=== PATIENT | male | born 1960 | race African-American/Black ===

== ENCOUNTER 2018-10-23 07:12 | Day surgery (SDC) | payer MEDICARE, MEDICAID ==
[2018-10-19 12:11] LABS: BASOPHILS % (AUTO) 0.9 % (0-1); EOSINOPHILS # (AUTO) 0.1 X10'3 (0-0.9); EOSINOPHILS % (AUTO) 1.5 % (0-6); LYMPHOCYTES # (AUTO) 1.7 X10'3 (1.1-4.8); LYMPHOCYTES % (AUTO) 39.5 % (21-51); MEAN CORPUSCULAR HEMOGLOBIN 32.3 PG (27.0-31.0); MEAN CORPUSCULAR HGB CONC 34.3 g/dL (33.0-36.5); MEAN CORPUSCULAR VOLUME 94.2 FL (78-98); MEAN PLATELET VOLUME 8.9 FL (7.4-10.4); MONOCYTES # (AUTO) 0.4 X10'3 (0-0.9); MONOCYTES % (AUTO) 8.5 % (2-12); NEUTROPHILS # (AUTO) 2.1 X10'3 (1.8-7.7); NEUTROPHILS % (AUTO) 49.6 % (42-75); PRE OP HEMATOCRIT 41.7 % (42.0-52.0); PRE OP HEMOGLOBIN 14.3 g/dL (14.0-17.9); PRE OP PLATELET COUNT 231 X10'3 (140-440); RED BLOOD COUNT 4.42 X10'6 (4.70-6.10); RED CELL DISTRIBUTION WIDTH 13.4 % (11.5-14.5)
[2018-10-19 12:20] LABS: ALBUMIN 3.9 G/DL (3.4-5.0); ALBUMIN/GLOBULIN RATIO 1.1 (1.1-1.5); ALKALINE PHOSPHATASE 84 IU/L (46-116); BLOOD UREA NITROGEN 13 MG/DL (7-18); BUN/CREATININE RATIO 13.7 (5.4-32.0); CALCIUM 8.8 MG/DL (8.5-10.1); CHLORIDE 106 MMOL/L (99-107); CREATININE 0.95 MG/DL (0.60-1.10); PRE OP ALT 34 U/L (30-65); PRE OP ANION GAP 8 (8-16); PRE OP AST 22 U/L (10-37); PRE OP BILIRUB, TOTAL 0.6 MG/DL (0.0-1.0); PRE OP GLUCOSE 84 MG/DL (70-104); PRE OP POTASSIUM 4.1 MMOL/L (3.4-5.1); PRE OP SODIUM 141 MMOL/L (135-145); TOTAL CARBON DIOXIDE 27.3 MMOL/L (24-32); TOTAL PROTEIN 7.6 G/DL (6.4-8.2); eGFR > 90 ML/MIN
[~2018-10-23] VITALS: Ht 182.9 cm; Wt 77.1 kg
[2018-10-23] VITALS (12 sets, daily range): BP systolic 120–158; BP diastolic 73–109
[~2018-10-23 07:12] MED LIST: CLON-528 PO; DOCU-28 PO; FENT1PAT10 TD; MAGN296S50 PO; METO10TA3 PO; PROC25SU31 RC; cefazolin/dext.iso 2gm/50ml 50 ML IV ONE; famotidine 20mg tablet PO ONE; ringers solution, lacted 1,000 ML IV SCH
[2018-10-23] MEDS ORDERED: NUGENIX TOTAL T (07:42)
[2018-10-23] MEDS ORDERED: dexmedetomidine 200mcg/2ml inj. IV ONE (08:46)
[2018-10-23] MEDS ORDERED: LIDOcaine 1% 30ml preserv. free vial ONE (08:48)
[2018-10-23] MEDS ORDERED: ringers solution, lacted 1,000 ML IV SCH (08:48)
[2018-10-23] MEDS ORDERED: BUPIVAcaine/PF 2.5 mg/ml (0.25%) 30ml vial ONE (08:48)
[2018-10-23] MEDS ORDERED: fentaNYL/PF 50MCG/1 ML 2ML syringe IV PRN (08:50)
[2018-10-23] MEDS ORDERED: hydrALAZINE 20mg/ml inj. IV PRN (08:50)
[2018-10-23] MEDS ORDERED: labetalol 20mg/4ml (5mg/ml) syringe IV PRN (08:50)
[2018-10-23] MEDS ORDERED: ondansetron/PF 4mg/2ml inj IV PRN (08:50)
[2018-10-23] MEDS ORDERED: morphine 4 MG/ML inj SYRINge IV PRN (08:50)
[2018-10-23] MEDS ORDERED: midazolam 2 mg/2 ml injection ONE (08:56)
[2018-10-23] MEDS ORDERED: fentaNYL/PF 50MCG/1 ML 2ML syringe ONE (08:56)
[2018-10-23] MEDS ORDERED: propofol inj 20 ML IV ONE (08:57)
[2018-10-23] MEDS ORDERED: LIDOcaine 2% (20mg/ml) 5ml vial ONE (08:57)
[2018-10-23] MEDS ORDERED: dexamethasone sod phosphate 4mg/ml inj. ONE (08:57)
[2018-10-23] MEDS ORDERED: ondansetron/PF 4mg/2ml inj ONE (08:58)
[2018-10-23] MEDS ORDERED: glycopyrrolate 0.2mg/ml inj ONE (08:58)
[2018-10-23] MEDS ORDERED: rocuronium 10mg/ml inj IV ONE (08:58)
[2018-10-23] MEDS ORDERED: sevoflurane 250ml liquid IH ONE (09:04)
[2018-10-23] MEDS ORDERED: neostigmine methylsulfate 1 MG/ML 10ml vial ONE (09:04)
[2018-10-23] MEDS ORDERED: labetalol 20mg/4ml (5mg/ml) syringe IV ONE (09:22)
[2018-10-23] MEDS ORDERED: hydrALAZINE 20mg/ml inj. IV ONE (09:26)
--- NOTE | 2018-10-23 10:10 | NUR ---
Received from OR via BED , accompanied by Anesthesiologist DR NAYAK and report given by Anesthesiolgist. PATIENT WAKING UP, DENIES PAIN, V/S WNL, NEUROVASCULAR CHECKS INTACT, 20G PIV LUE, SCD ON, BANDAIDS TO LAP SIGHTS OF ABDOMEN CDI.
[2018-10-23] MEDS: fentaNYL/PF 50MCG/1 ML 2ML syringe IV PRN ×2 (10:22→10:33)
[2018-10-23] MEDS ORDERED: HYDROcodone/acetaminophen 5mg/325mg tablet PO ONE (10:25)
[2018-10-23] MEDS: morphine 4 MG/ML inj SYRINge IV PRN ×2 (10:45→11:01)
--- NOTE | 2018-10-23 11:30 | NUR ---
PATIENT A&OX4, DENIES PAIN, V/S WNL, NEUROVASCULAR CHECKS INTACT, 20G PIV LUE D/C, SCD OFF, BANDAIDS TO LAP SIGHTS OF ABDOMEN CDI.. I HAVE REVIEWED D/C INSTRUCTIONS WITH PATIENT AND FAMILY HAVE VERBALIZED UNDERSTANDING.PATIENT WAS D/C HOME WITH ALL BELONGINGS AND FAMILY GAVE TRANSPORT HOME.
[2018-10-23] MEDS ORDERED: FLO0.4C PO (21:20)
== END 2018-10-23 11:30 | disposition home or self-care (01) ==
LOC: PAS 07:12
PROVIDERS: ATTEND Surgery
DX: K40.90 Unilateral inguinal hernia, without obstruction or gangrene, not specified as recurrent (principal); G89.29 Other chronic pain; Z87.891 Personal history of nicotine dependence; Z88.8 Allergy status to other drugs, medicaments and biological substances; Z98.890 Other specified postprocedural states; Z79.899 Other long term (current) drug therapy
CPT/HCPCS: 36415; 49650; 80053; 82948; 85025; 93005; C1781; J0360; J1100; J2001; J2250; J2270; J2405; J2704; J3010; J3490; 51702; 99284; A4215; A4618; J2710; J7120

== ENCOUNTER 2018-10-23 19:34 | Emergency (ER) | payer MEDICARE, MEDICAID ==
[~2018-10-23] VITALS: Ht 182.9 cm; Wt 75.0 kg
[~2018-10-23 19:34] MED LIST changes: +NUGENIX TOTAL T; -cefazolin/dext.iso 2gm/50ml 50 ML IV ONE; -famotidine 20mg tablet PO ONE; -ringers solution, lacted 1,000 ML IV SCH
[2018-10-23] MEDS ORDERED: tamsulosin 0.4mg capsule PO ONE (20:10)
--- NOTE | 2018-10-23 20:22 | NUR ---
pt walking in room with running water,pt said dr told him to try to urinate if he can otherwise they will staright cath.
--- NOTE | 2018-10-23 20:45 | NUR ---
pt urinated 100 ml of urine .pt said he want 20 more mins ,"i think i can pee".
[2018-10-23] MEDS ORDERED: FLO0.4C PO (21:20)
[2018-10-23 21:54] VITALS: BP 122/99
== END 2018-10-23 21:59 | disposition home or self-care (01) ==
LOC: ER 19:35
DX: R33.9 Retention of urine, unspecified (principal); I10 Essential (primary) hypertension; J45.909 Unspecified asthma, uncomplicated; K21.9 Gastro-esophageal reflux disease without esophagitis; G89.29 Other chronic pain; E11.9 Type 2 diabetes mellitus without complications; F41.9 Anxiety disorder, unspecified; Z98.890 Other specified postprocedural states; Z88.8 Allergy status to other drugs, medicaments and biological substances; Z79.899 Other long term (current) drug therapy
CPT/HCPCS: 51702; 99284

== ENCOUNTER 2019-01-08 12:59 | Emergency (ER) | payer MEDICARE, MEDICAID ==
[~2019-01-08] VITALS: Ht 185.4 cm; Wt 77.3 kg
[~2019-01-08 12:59] MED LIST changes: -CLON-528 PO; -DOCU-28 PO; -FENT1PAT10 TD; -MAGN296S50 PO; -METO10TA3 PO; -PROC25SU31 RC
[2019-01-08 13:45] LABS: BASOPHILS % (AUTO) 0.5 % (0-1); EOSINOPHILS % (AUTO) 0.3 % (0-6); HEMATOCRIT 43.3 % (42.0-52.0); HEMOGLOBIN 15.2 g/dl (14.0-17.9); LYMPHOCYTES # (AUTO) 1.2 X10'3 (1.1-4.8); LYMPHOCYTES % (AUTO) 15.8 % (21-51); MEAN CORPUSCULAR HEMOGLOBIN 32.3 PG (27.0-31.0); MEAN CORPUSCULAR HGB CONC 35.1 g/dL (33.0-36.5); MEAN CORPUSCULAR VOLUME 92.2 FL (78-98); MEAN PLATELET VOLUME 9.4 FL (7.4-10.4); MONOCYTES # (AUTO) 1.1 X10'3 (0-0.9); MONOCYTES % (AUTO) 15.2 % (2-12); NEUTROPHILS # (AUTO) 5.1 X10'3 (1.8-7.7); NEUTROPHILS % (AUTO) 68.2 % (42-75); PLATELET COUNT 247 X10'3 (140-440); RED BLOOD COUNT 4.69 X10'6 (4.70-6.10); RED CELL DISTRIBUTION WIDTH 12.8 % (11.5-14.5); WHITE BLOOD COUNT 7.5 X10'3 (4.5-11.0)
[2019-01-08] MEDS ORDERED: normal saline 1000ml 1,000 ML IV ONE (14:05)
[2019-01-08] MEDS ORDERED: metoclopramide 5 mg/ml inj IV ONE (14:05)
[2019-01-08 14:10] LABS: ALANINE AMINOTRANSFERASE 23 U/L (12-78); ALBUMIN 4.9 G/DL (3.4-5.0); ALBUMIN/GLOBULIN RATIO 1.1 (1.1-1.5); ALKALINE PHOSPHATASE 107 IU/L (46-116); ANION GAP 14 (8-16); ASPARTATE AMINO TRANSFERASE 36 U/L (10-37); BILIRUBIN,TOTAL 0.8 MG/DL (0.1-1.0); BLOOD UREA NITROGEN 32 MG/DL (7-18); BUN/CREATININE RATIO 21.3 (5.4-32.0); CALCIUM 10.2 MG/DL (8.5-10.1); CHLORIDE 94 MMOL/L (99-107); GLUCOSE 124 MG/DL (70-104); LIPASE 57 U/L (73-393); POTASSIUM 3.5 MMOL/L (3.5-5.1); SODIUM 134 MMOL/L (135-145); TOTAL CARBON DIOXIDE 25.7 MMOL/L (24-32); TOTAL PROTEIN 9.4 G/DL (6.4-8.2); eGFR 58 ML/MIN
[2019-01-08] MEDS ORDERED: morphine 4 MG/ML inj SYRINge IV ONE (14:35)
[2019-01-08 14:47] LABS: CLARITY,URINE SLIGHTLY CLOUDY (Clear); COLOR,URINE YELLOW (Yellow); GLUCOSE, URINE NEGATIVE (Neg); KETONES,URINE NEGATIVE (Neg); LEUKOCYTE ESTERASE ,URINE NEGATIVE (Neg); NITRITES, URINE NEGATIVE (Neg); OCCULT BLOOD,URINE LARGE (Neg); PH,URINE 5.5 (4.8-8.0); PROTEIN,URINE 100 mg/dl (Neg); UROBILINOGEN,URINE 0.2 E.U/dL (0.2-1.0)
[2019-01-08] MEDS ORDERED: iohexol 300mg/ml 100ml inj. ONE (15:10)
[2019-01-08 15:13] LABS: UA COLLECTION TYPE CLN CATCH MIDSTREAM
[2019-01-08 15:14] LABS: MUCUS STRANDS MANY /LPF (Neg)
[2019-01-08 15:15] LABS: SQUAMOUS EPITHELIAL CELL,UR FEW /LPF (FEW)
--- NOTE | 2019-01-08 15:15 | NUR ---
PT STATES. ABD PAIN IS STILL AT A 10/10. AND MORPHINE DOESNT WORK AND ASKING FOR DILAUDID.
[2019-01-08 15:17] LABS: TRANSITIONAL EPI CELLS,URINE FEW /HPF
[2019-01-08 15:18] LABS: BACTERIA,URINE FEW /HPF (Neg); WBC,URINE 0-4 /HPF (0-4)
--- NOTE | 2019-01-08 15:20 | NUR ---
PT OUT TO CT VIA WHEELCHAIR WITH DIGITAL MARKETING LEAD
[2019-01-08 15:22] LABS: CELLULAR CAST 0-4 /LPF (NEGATIVE); HYALINE CASTS >30 /LPF (NEGATIVE)
[2019-01-08 15:24] LABS: WAXY CASTS,URINE 0-3 /LPF (NEGATIVE)
[2019-01-08 15:25] LABS: COARSE GRANULAR CAST 0-3 /LPF (NEGATIVE); FINE GRANULAR CAST 0-3 /LPF (NEGATIVE)
[2019-01-08 15:28] LABS: RENAL CELLS, URINE FEW /HPF
--- NOTE | 2019-01-08 15:35 | NUR ---
PT RETURNS FROM CT
--- NOTE | 2019-01-08 15:42 | NUR ---
INFORMED DR. WHITE PT IS REQUESTING DILAUDED.
--- NOTE | 2019-01-08 15:57 | NUR ---
PATIENT STILL C/O 11/15 ABDOMINAL PAIN,REQUESTING TORADOL,DR. WHITE MADE AWARE,RECEIVED VERBAL ORDER FOR TORADOL 15MG IV.ORDER NOTED AND CARRIED OUT.PATIENT CLEAR TO GO HOME.
--- NOTE | 2019-01-08 15:58 | NUR ---
PER PATIENT HE WAS GIVEN TORADOL BEFORE,NO REACTION.
[2019-01-08] MEDS ORDERED: ketorolac tromethamine 15mg/ml inj. IV STA (15:59)
[2019-01-08 16:07] VITALS: BP 117/114
== END 2019-01-08 16:09 | disposition home or self-care (01) ==
LOC: ER 13:01
DX: R10.32 Left lower quadrant pain (principal); I10 Essential (primary) hypertension; J45.909 Unspecified asthma, uncomplicated; K21.9 Gastro-esophageal reflux disease without esophagitis; G89.29 Other chronic pain; Z88.6 Allergy status to analgesic agent; Z79.899 Other long term (current) drug therapy; Z87.19 Personal history of other diseases of the digestive system
CPT/HCPCS: 36415; 74177; 80053; 81001; 83690; 85025; 96374; 96375; 99284; J1885; J2270; J2765; J7030; Q9967

== ENCOUNTER 2019-07-11 20:43 | Emergency (ER) | payer MEDICARE, MEDICAID ==
[~2019-07-11] VITALS: Ht 185.4 cm; Wt 72.7 kg
[2019-07-11 20:46] VITALS: BP 112/85
[2019-07-11] MEDS ORDERED: acetaminophen 325mg tablet PO ONE (22:30)
[2019-07-11] MEDS ORDERED: orphenadrine citrate 60mg/2ml inj. IM ONE (22:30)
[2019-07-11] MEDS ORDERED: CYCL-1 PO (23:00)
== END 2019-07-11 23:06 | disposition home or self-care (01) ==
LOC: ER 20:44
DX: M54.5 Low back pain (principal); I10 Essential (primary) hypertension; J45.909 Unspecified asthma, uncomplicated; K21.9 Gastro-esophageal reflux disease without esophagitis; G89.29 Other chronic pain; F41.9 Anxiety disorder, unspecified; Z98.890 Other specified postprocedural states; Z88.6 Allergy status to analgesic agent; Z79.899 Other long term (current) drug therapy
CPT/HCPCS: 72110; 96372; 99283; J2360

== ENCOUNTER 2019-12-21 20:33 | Emergency (ER) | payer MEDICARE, MEDICAID ==
[~2019-12-21] VITALS: Ht 185.4 cm; Wt 75.0 kg
[~2019-12-21 20:33] MED LIST changes: +CYCL-1 PO
[2019-12-21] MEDS ORDERED: LORazepam 1 MG tablet PO ONE (22:25)
[2019-12-21] MEDS ORDERED: haloperidol lactate 5mg/ml inj IM ONE (22:25)
--- NOTE | 2019-12-21 23:53 | NUR ---
Patient is well oriented no distress now. Abdominal pain is resolved. Patient denies cramping. Teaching given about side effects of THC. Patient states he will quit. Patient exibited understanding of disch inst. Patient discharged to home.
[2019-12-21 23:58] VITALS: BP 162/84
== END 2019-12-21 23:45 | disposition home or self-care (01) ==
LOC: ER 20:34
DX: K59.00 Constipation, unspecified (principal); R10.84 Generalized abdominal pain; R11.2 Nausea with vomiting, unspecified; I10 Essential (primary) hypertension; J45.909 Unspecified asthma, uncomplicated; K21.9 Gastro-esophageal reflux disease without esophagitis; G89.29 Other chronic pain; F41.9 Anxiety disorder, unspecified; Z98.890 Other specified postprocedural states; Z88.6 Allergy status to analgesic agent; Z79.899 Other long term (current) drug therapy
CPT/HCPCS: 96372; 99283; J1630

== ENCOUNTER 2019-12-23 12:13 | Emergency (ER) | payer MEDICARE, MEDICAID ==
[~2019-12-23] VITALS: Ht 185.4 cm; Wt 75.0 kg
[2019-12-23] MEDS ORDERED: normal saline 1000ML IV soln IVB ONE (13:30)
[2019-12-23] MEDS ORDERED: ketorolac tromethamine 15mg/ml inj. IV ONE (13:40)
[2019-12-23 14:00] LABS: BASOPHILS % (AUTO) 0.5 % (0-1); EOSINOPHILS % (AUTO) 0.1 % (0-6); HEMOGLOBIN 14.7 g/dl (14.0-17.9); LYMPHOCYTES # (AUTO) 1.8 X10'3 (1.1-4.8); LYMPHOCYTES % (AUTO) 20.3 % (21-51); MEAN CORPUSCULAR HEMOGLOBIN 31.5 PG (27.0-31.0); MEAN CORPUSCULAR VOLUME 92.4 FL (78-98); MEAN PLATELET VOLUME 8.8 FL (7.4-10.4); MONOCYTES # (AUTO) 0.9 X10'3 (0-0.9); MONOCYTES % (AUTO) 10.7 % (2-12); NEUTROPHILS # (AUTO) 6.1 X10'3 (1.8-7.7); NEUTROPHILS % (AUTO) 68.4 % (42-75); PLATELET COUNT 247 X10'3 (140-440); RED BLOOD COUNT 4.66 X10'6 (4.70-6.10); RED CELL DISTRIBUTION WIDTH 12.8 % (11.5-14.5); WHITE BLOOD COUNT 8.8 X10'3 (4.5-11.0)
[2019-12-23 14:12] LABS: ALANINE AMINOTRANSFERASE 45 U/L (12-78); ALBUMIN 4.6 G/DL (3.4-5.0); ALKALINE PHOSPHATASE 108 IU/L (46-116); ANION GAP 11 (8-16); ASPARTATE AMINO TRANSFERASE 107 U/L (10-37); BILIRUBIN,TOTAL 0.7 MG/DL (0.1-1.0); BLOOD UREA NITROGEN 30 MG/DL (7-18); BUN/CREATININE RATIO 9.6 (5.4-32.0); CALCIUM 9.3 MG/DL (8.5-10.1); CHLORIDE 94 MMOL/L (99-107); CREATININE 3.11 MG/DL (0.60-1.10); GLUCOSE 120 MG/DL (70-104); POTASSIUM 5.1 MMOL/L (3.5-5.1); SODIUM 129 MMOL/L (135-145); TOTAL CARBON DIOXIDE 24.2 MMOL/L (24-32); TOTAL PROTEIN 9.4 G/DL (6.4-8.2); eGFR 25 ML/MIN
[2019-12-23 14:41] LABS: CLARITY,URINE SLIGHTLY CLOUDY (Clear); COLOR,URINE YELLOW (Yellow); GLUCOSE, URINE NEGATIVE (Neg); KETONES,URINE TRACE mg/dl (Neg); LEUKOCYTE ESTERASE ,URINE TRACE (Neg); NITRITES, URINE NEGATIVE (Neg); OCCULT BLOOD,URINE LARGE (Neg); PROTEIN,URINE 100 mg/dl (Neg); UA COLLECTION TYPE CLN CATCH MIDSTREAM; UROBILINOGEN,URINE 0.2 E.U/dL (0.2-1.0)
[2019-12-23 14:48] LABS: MUCUS STRANDS MANY /LPF (Neg)
[2019-12-23 14:49] LABS: SQUAMOUS EPITHELIAL CELL,UR FEW /LPF (FEW)
[2019-12-23 14:50] LABS: BACTERIA,URINE 1+ /HPF (Neg)
[2019-12-23 14:52] LABS: STARCH,URINE FEW /HPF (NEGATIVE)
[2019-12-23 14:54] LABS: CAL OXALATE CRYSTALS FEW /HPF (NEGATIVE); COARSE GRANULAR CAST 0-3 /LPF (NEGATIVE)
[2019-12-23 14:55] LABS: TRANSITIONAL EPI CELLS,URINE FEW /HPF
[2019-12-23] MEDS ORDERED: proCHLORperazine 10 MG/2 ml inj IV ONE (14:55)
--- NOTE | 2019-12-23 14:56 | NUR ---
TC FROM PATIENT'S MOTHER FOR CONDITION REPORT.
[2019-12-23 15:17] VITALS: BP 174/122
== END 2019-12-23 15:19 | disposition home or self-care (01) ==
LOC: ER 12:13
DX: E87.1 Hypo-osmolality and hyponatremia (principal); E86.0 Dehydration; I10 Essential (primary) hypertension; J45.909 Unspecified asthma, uncomplicated; K21.9 Gastro-esophageal reflux disease without esophagitis; G89.29 Other chronic pain; F41.9 Anxiety disorder, unspecified; I49.9 Cardiac arrhythmia, unspecified; F12.10 Cannabis abuse, uncomplicated; Z88.2 Allergy status to sulfonamides
CPT/HCPCS: 36415; 80053; 81001; 85025; 87088; 96361; 96374; 96375; 99284; J0780; J1885; J7030

== ENCOUNTER → 2020-08-20 | Emergency (ER) | payer MEDICARE, MEDICAID ==
[~2020-08-20] VITALS: Ht 185.4 cm; Wt 65.9 kg
[~2020-08-20] MED LIST changes: +OMEP20TA23 PO; +metoclopramide 5 mg/ml inj IV ONE; +normal saline 1000ML IV soln IVB ONE; +ondansetron/PF 4mg/2ml inj IV ONE
[2020-08-20 15:55] LABS: BASOPHILS % (AUTO) 0.2 % (0-1); EOSINOPHILS % (AUTO) 0 % (0-6); HEMATOCRIT 43.4 % (42.0-52.0); LYMPHOCYTES # (AUTO) 1.9 X10'3 (1.1-4.8); LYMPHOCYTES % (AUTO) 19.4 % (21-51); MEAN CORPUSCULAR HEMOGLOBIN 31.5 PG (27.0-31.0); MEAN CORPUSCULAR HGB CONC 34.6 g/dL (33.0-36.5); MEAN CORPUSCULAR VOLUME 91.3 FL (78-98); MEAN PLATELET VOLUME 8.5 FL (7.4-10.4); MONOCYTES # (AUTO) 0.8 X10'3 (0-0.9); MONOCYTES % (AUTO) 8.2 % (2-12); NEUTROPHILS # (AUTO) 7.1 X10'3 (1.8-7.7); NEUTROPHILS % (AUTO) 72.2 % (42-75); PLATELET COUNT 260 X10'3 (140-440); RED BLOOD COUNT 4.76 X10'6 (4.70-6.10); RED CELL DISTRIBUTION WIDTH 12.9 % (11.5-14.5); WHITE BLOOD COUNT 9.8 X10'3 (4.5-11.0)
[2020-08-20 16:05] LABS: ALANINE AMINOTRANSFERASE 33 U/L (12-78); ALBUMIN 4.5 G/DL (3.4-5.0); ALKALINE PHOSPHATASE 103 IU/L (46-116); AMYLASE 104 U/L (25-115); ANION GAP 14 (8-16); ASPARTATE AMINO TRANSFERASE 93 U/L (10-37); BILIRUBIN,TOTAL 1.1 MG/DL (0.1-1.0); BLOOD UREA NITROGEN 41 MG/DL (7-18); BUN/CREATININE RATIO 25.5 (5.4-32.0); CALCIUM 8.7 MG/DL (8.5-10.1); CHLORIDE 92 MMOL/L (99-107); CREATININE 1.61 MG/DL (0.60-1.10); GLUCOSE 124 MG/DL (70-104); LIPASE < 50 U/L (73-393); POTASSIUM 4.2 MMOL/L (3.5-5.1); SODIUM 130 MMOL/L (135-145); TOTAL CARBON DIOXIDE 24.2 MMOL/L (24-32); TOTAL PROTEIN 9.2 G/DL (6.4-8.2); eGFR 53 ML/MIN
[2020-08-20 19:09] LABS: CLARITY,URINE CLEAR (Clear); COLOR,URINE YELLOW (Yellow); GLUCOSE, URINE NEGATIVE (Neg); KETONES,URINE 15 mg/dl (Neg); LEUKOCYTE ESTERASE ,URINE NEGATIVE (Neg); NITRITES, URINE NEGATIVE (Neg); OCCULT BLOOD,URINE SMALL (Neg); PH,URINE 7.5 (4.8-8.0); PROTEIN,URINE 30 mg/dl (Neg)
[2020-08-20 19:16] LABS: UA COLLECTION TYPE CLN CATCH MIDSTREAM
[2020-08-20 19:20] LABS: BACTERIA,URINE NONE SEEN /HPF (Neg); SQUAMOUS EPITHELIAL CELL,UR FEW /LPF (FEW); WBC,URINE NONE SEEN /HPF (0-4)
--- NOTE | 2020-08-20 19:34 | NUR ---
[facility] CALLED FOR PT
[2020-08-20 19:39] VITALS: BP 158/74
== END | disposition home or self-care (01) ==
LOC: ER 14:43
DX: K29.00 Acute gastritis without bleeding (principal); R11.2 Nausea with vomiting, unspecified; R10.84 Generalized abdominal pain; I10 Essential (primary) hypertension; J45.909 Unspecified asthma, uncomplicated; K21.9 Gastro-esophageal reflux disease without esophagitis; G89.29 Other chronic pain; F12.90 Cannabis use, unspecified, uncomplicated; F41.9 Anxiety disorder, unspecified; Z98.890 Other specified postprocedural states; Z88.6 Allergy status to analgesic agent; Z79.899 Other long term (current) drug therapy
CPT/HCPCS: 36415; 76700; 80053; 81001; 82150; 83690; 85025; 93005; 96361; 96374; 96375; 99285; J2405; J2765; J7030

== ENCOUNTER 2020-08-21 07:18 | Emergency (ER) | payer MEDICARE, MEDICAID ==
[~2020-08-21] VITALS: Ht 185.4 cm; Wt 71.8 kg
[~2020-08-21 07:18] MED LIST changes: -OMEP20TA23 PO; -metoclopramide 5 mg/ml inj IV ONE; -normal saline 1000ML IV soln IVB ONE; -ondansetron/PF 4mg/2ml inj IV ONE
[2020-08-21] MEDS ORDERED: ondansetron 4mg rapidly disintigrating tab PO ONE (07:25)
[2020-08-21] MEDS ORDERED: LIDOcaine Viscous 15ml cup MM ONE (07:25)
[2020-08-21] MEDS ORDERED: mag hydrox/Alum hydrox/simeth 30ml oral suspension PO ONE (07:25)
[2020-08-21 07:59] LABS: BASOPHILS # (AUTO) 0.1 X10'3 (0-0.2); BASOPHILS % (AUTO) 0.6 % (0-1); EOSINOPHILS % (AUTO) 0.3 % (0-6); HEMATOCRIT 43.8 % (42.0-52.0); LYMPHOCYTES # (AUTO) 1.9 X10'3 (1.1-4.8); LYMPHOCYTES % (AUTO) 19.7 % (21-51); MEAN CORPUSCULAR HEMOGLOBIN 31.5 PG (27.0-31.0); MEAN CORPUSCULAR HGB CONC 34.2 g/dL (33.0-36.5); MEAN CORPUSCULAR VOLUME 91.9 FL (78-98); MEAN PLATELET VOLUME 8.9 FL (7.4-10.4); MONOCYTES % (AUTO) 9.8 % (2-12); NEUTROPHILS # (AUTO) 6.8 X10'3 (1.8-7.7); NEUTROPHILS % (AUTO) 69.6 % (42-75); PLATELET COUNT 260 X10'3 (140-440); RED BLOOD COUNT 4.76 X10'6 (4.70-6.10); RED CELL DISTRIBUTION WIDTH 13.1 % (11.5-14.5); WHITE BLOOD COUNT 9.8 X10'3 (4.5-11.0)
[2020-08-21 08:19] LABS: ALANINE AMINOTRANSFERASE 45 U/L (12-78); ALBUMIN 4.5 G/DL (3.4-5.0); ALKALINE PHOSPHATASE 96 IU/L (46-116); ANION GAP 14 (8-16); ASPARTATE AMINO TRANSFERASE 104 U/L (10-37); BLOOD UREA NITROGEN 36 MG/DL (7-18); BUN/CREATININE RATIO 26.1 (5.4-32.0); CALCIUM 8.8 MG/DL (8.5-10.1); CHLORIDE 96 MMOL/L (99-107); CREATININE 1.38 MG/DL (0.60-1.10); GLUCOSE 125 MG/DL (70-104); LIPASE < 50 U/L (73-393); POTASSIUM 4.1 MMOL/L (3.5-5.1); SODIUM 134 MMOL/L (135-145); TOTAL CARBON DIOXIDE 24.3 MMOL/L (24-32); TOTAL PROTEIN 9.2 G/DL (6.4-8.2); eGFR 64 ML/MIN
[2020-08-21] MEDS ORDERED: OMEP20TA23 PO (08:36)
[2020-08-21 08:42] VITALS: BP 156/105
== END 2020-08-21 08:50 | disposition home or self-care (01) ==
LOC: ER 07:19
DX: R10.10 Upper abdominal pain, unspecified (principal); R11.2 Nausea with vomiting, unspecified; R19.7 Diarrhea, unspecified; I12.9 Hypertensive chronic kidney disease with stage 1 through stage 4 chronic kidney disease, or unspecified chronic kidney disease; E11.22 Type 2 diabetes mellitus with diabetic chronic kidney disease; N18.9 Chronic kidney disease, unspecified; J45.909 Unspecified asthma, uncomplicated; K21.9 Gastro-esophageal reflux disease without esophagitis; G89.29 Other chronic pain; F12.90 Cannabis use, unspecified, uncomplicated; Z98.890 Other specified postprocedural states; Z88.8 Allergy status to other drugs, medicaments and biological substances; Z79.899 Other long term (current) drug therapy
CPT/HCPCS: 36415; 80053; 83690; 85025; 99283

== ENCOUNTER 2020-12-31 16:12 | Emergency (ER) | payer MEDICARE, MEDICAID ==
[~2020-12-31] VITALS: Ht 185.4 cm; Wt 75.0 kg
[~2020-12-31 16:12] MED LIST changes: +OMEP20TA23 PO
[2020-12-31 16:48] LABS: MEAN PLATELET VOLUME 8.4 FL (7.4-10.4); MONOCYTES # (AUTO) 0.9 X10'3 (0-0.9)
[2020-12-31 16:50] LABS: ALANINE AMINOTRANSFERASE 31 U/L (12-78); ALBUMIN 4.4 G/DL (3.4-5.0); ALKALINE PHOSPHATASE 113 IU/L (46-116); ANION GAP 10 (8-16); ASPARTATE AMINO TRANSFERASE 46 U/L (10-37); BASOPHILS # (AUTO) 0.1 X10'3 (0-0.2); BASOPHILS % (AUTO) 0.8 % (0-1); BILIRUBIN,TOTAL 1.2 MG/DL (0.1-1.0); BLOOD UREA NITROGEN 24 MG/DL (7-18); CALCIUM 8.9 MG/DL (8.5-10.1); CHLORIDE 95 MMOL/L (99-107); CREATININE 1.41 MG/DL (0.60-1.10); EOSINOPHILS % (AUTO) 0.3 % (0-6); GLUCOSE 139 MG/DL (70-104); HEMATOCRIT 43.3 % (42.0-52.0); HEMOGLOBIN 14.9 g/dl (14.0-17.9); LIPASE < 50 U/L (73-393); LYMPHOCYTES # (AUTO) 2.3 X10'3 (1.1-4.8); LYMPHOCYTES % (AUTO) 30.4 % (21-51); MEAN CORPUSCULAR HEMOGLOBIN 31.7 PG (27.0-31.0); MEAN CORPUSCULAR HGB CONC 34.6 g/dL (33.0-36.5); MEAN CORPUSCULAR VOLUME 91.7 FL (78-98); MONOCYTES % (AUTO) 11.5 % (2-12); NEUTROPHILS # (AUTO) 4.3 X10'3 (1.8-7.7); PLATELET COUNT 273 X10'3 (140-440); POTASSIUM 4.2 MMOL/L (3.5-5.1); RED BLOOD COUNT 4.72 X10'6 (4.70-6.10); RED CELL DISTRIBUTION WIDTH 12.9 % (11.5-14.5); SODIUM 131 MMOL/L (135-145); TOTAL PROTEIN 8.8 G/DL (6.4-8.2); WHITE BLOOD COUNT 7.5 X10'3 (4.5-11.0); eGFR 62 ML/MIN
[2020-12-31] MEDS ORDERED: ondansetron 4mg rapidly disintigrating tab PO ONE (16:55)
[2020-12-31] MEDS ORDERED: acetaminophen 325mg tablet PO ONE (16:55)
[2020-12-31] MEDS ORDERED: normal saline 1000ML IV soln IVB ONE (16:55)
[2020-12-31] MEDS ORDERED: ondansetron/PF 4mg/2ml inj IV ONE (18:00)
--- NOTE | 2020-12-31 18:33 | NUR ---
ASSUMED CARE OF PT. PT PACING IN ROOM. STATES WALKING HELPS ABDOMINAL PAIN.
[2020-12-31 18:45] LABS: CLARITY,URINE CLEAR (Clear); COLOR,URINE YELLOW (Yellow); GLUCOSE, URINE NEGATIVE (Neg); KETONES,URINE 15 mg/dl (Neg); LEUKOCYTE ESTERASE ,URINE NEGATIVE (Neg); NITRITES, URINE NEGATIVE (Neg); OCCULT BLOOD,URINE SMALL (Neg); PROTEIN,URINE TRACE mg/dl (Neg)
[2020-12-31 18:54] LABS: UA COLLECTION TYPE URINAL
[2020-12-31 18:55] LABS: MUCUS STRANDS FEW /LPF (Neg); SQUAMOUS EPITHELIAL CELL,UR FEW /LPF (FEW)
[2020-12-31 18:56] LABS: BACTERIA,URINE FEW /HPF (Neg); WBC,URINE 0-4 /HPF (0-4)
[2020-12-31] MEDS ORDERED: proCHLORperazine 10 MG/2 ml inj IM ONE (19:05)
[2020-12-31] MEDS ORDERED: mag hydrox/Alum hydrox/simeth 30ml oral suspension PO ONE (19:05)
[2020-12-31] MEDS ORDERED: LIDOcaine Viscous 15ml cup TP ONE (19:05)
[2020-12-31] MEDS ORDERED: OMEP40CA21 PO (19:06)
[2020-12-31 19:29] VITALS: BP 173/125
== END 2020-12-31 19:34 | disposition home or self-care (01) ==
LOC: ER 16:13
DX: K29.00 Acute gastritis without bleeding (principal); R11.2 Nausea with vomiting, unspecified; J45.909 Unspecified asthma, uncomplicated; K21.9 Gastro-esophageal reflux disease without esophagitis; G89.29 Other chronic pain; I12.9 Hypertensive chronic kidney disease with stage 1 through stage 4 chronic kidney disease, or unspecified chronic kidney disease; N18.9 Chronic kidney disease, unspecified; F12.90 Cannabis use, unspecified, uncomplicated; Z79.899 Other long term (current) drug therapy; Z88.8 Allergy status to other drugs, medicaments and biological substances
CPT/HCPCS: 36415; 80053; 81001; 83690; 85025; 96361; 96372; 96374; 99285; J0780; J2405; J7030

== ENCOUNTER 2021-06-12 22:25 | Emergency (ER) | payer MEDICARE, MEDICAID ==
[~2021-06-12] VITALS: Ht 185.4 cm; Wt 77.3 kg
[2021-06-12 23:06] LABS: BASOPHILS # (AUTO) 0.1 X10'3 (0-0.2); BASOPHILS % (AUTO) 0.8 % (0-1); EOSINOPHILS # (AUTO) 0.4 X10'3 (0-0.9); EOSINOPHILS % (AUTO) 5.9 % (0-6); HEMATOCRIT 38.3 % (42.0-52.0); HEMOGLOBIN 13.3 g/dl (14.0-17.9); LYMPHOCYTES % (AUTO) 30.9 % (21-51); MEAN CORPUSCULAR HEMOGLOBIN 31.5 PG (27.0-31.0); MEAN CORPUSCULAR HGB CONC 34.7 g/dL (33.0-36.5); MEAN CORPUSCULAR VOLUME 90.8 FL (78-98); MEAN PLATELET VOLUME 8.4 FL (7.4-10.4); MONOCYTES # (AUTO) 0.5 X10'3 (0-0.9); MONOCYTES % (AUTO) 8.4 % (2-12); NEUTROPHILS # (AUTO) 3.5 X10'3 (1.8-7.7); PLATELET COUNT 239 X10'3 (140-440); RED BLOOD COUNT 4.21 X10'6 (4.70-6.10); RED CELL DISTRIBUTION WIDTH 13.2 % (11.5-14.5); WHITE BLOOD COUNT 6.4 X10'3 (4.5-11.0)
[2021-06-12 23:18] VITALS: BP 167/120
[2021-06-12 23:20] LABS: ALANINE AMINOTRANSFERASE 19 U/L (12-78); ALBUMIN/GLOBULIN RATIO 0.9 (1.1-1.5); ALKALINE PHOSPHATASE 110 IU/L (46-116); ANION GAP 13 (8-16); ASPARTATE AMINO TRANSFERASE 20 U/L (10-37); BILIRUBIN,TOTAL 0.6 MG/DL (0.1-1.0); BLOOD UREA NITROGEN 13 MG/DL (7-18); BUN/CREATININE RATIO 13.1 (5.4-32.0); CALCIUM 9.5 MG/DL (8.5-10.1); CHLORIDE 100 MMOL/L (99-107); CREATININE 0.99 MG/DL (0.60-1.10); GLUCOSE 99 MG/DL (70-104); POTASSIUM 3.5 MMOL/L (3.5-5.1); SODIUM 138 MMOL/L (135-145); TOTAL CARBON DIOXIDE 25.4 MMOL/L (24-32); TOTAL PROTEIN 8.3 G/DL (6.4-8.2); eGFR > 90 ML/MIN
[2021-06-12] MEDS ORDERED: cloNIDine 0.1 mg tablet PO ONE (23:40)
[2021-06-12] MEDS ORDERED: ALBU6.7H9 INH (23:51)
== END 2021-06-13 01:45 | disposition home or self-care (01) ==
LOC: ER 22:26
DX: I12.9 Hypertensive chronic kidney disease with stage 1 through stage 4 chronic kidney disease, or unspecified chronic kidney disease (principal); N18.9 Chronic kidney disease, unspecified; J45.909 Unspecified asthma, uncomplicated; F12.90 Cannabis use, unspecified, uncomplicated; R06.02 Shortness of breath; K21.9 Gastro-esophageal reflux disease without esophagitis; G89.29 Other chronic pain; F41.9 Anxiety disorder, unspecified; Z98.890 Other specified postprocedural states; Z88.6 Allergy status to analgesic agent; Z79.899 Other long term (current) drug therapy
CPT/HCPCS: 36415; 71045; 80053; 83880; 84484; 85025; 93005; 99285

== ENCOUNTER 2021-11-02 12:44 | Emergency (ER) | payer MEDICARE, MEDICAID ==
[~2021-11-02] VITALS: Ht 185.4 cm; Wt 72.7 kg
[~2021-11-02 12:44] MED LIST changes: +ALBU6.7H14 INH
[2021-11-02 12:51] VITALS: BP 129/93
== END 2021-11-02 15:52 | disposition home or self-care (01) ==
LOC: ER 12:44
DX: J06.9 Acute upper respiratory infection, unspecified (principal); Z20.822 Contact with and (suspected) exposure to COVID-19; J45.909 Unspecified asthma, uncomplicated; K21.9 Gastro-esophageal reflux disease without esophagitis; I12.9 Hypertensive chronic kidney disease with stage 1 through stage 4 chronic kidney disease, or unspecified chronic kidney disease; N18.9 Chronic kidney disease, unspecified; G89.29 Other chronic pain; M54.50 Low back pain, unspecified; F12.90 Cannabis use, unspecified, uncomplicated; Z88.6 Allergy status to analgesic agent
CPT/HCPCS: 71045; 87635; 93005; 99285; C9803

== ENCOUNTER 2022-10-28 12:39 | Emergency (ER) | payer MEDICARE, MEDICAID | END 2022-10-28 17:53 | disposition left against medical advice (07) | LOC: ER 12:41 | DX: R10.9 Unspecified abdominal pain (principal); Z53.21 Procedure and treatment not carried out due to patient leaving prior to being seen by health care provider ==

== ENCOUNTER 2023-03-13 01:20 | Emergency (ER) | payer MEDICARE, MEDICAID ==
[~2023-03-13] VITALS: Ht 180.3 cm; Wt 73.6 kg
[~2023-03-13 01:20] MED LIST changes: -ALBU6.7H14 INH; -CYCL-1 PO; -NUGENIX TOTAL T; -OMEP20TA23 PO; +PHEN-716 PO; +PROC10TA97 PO
[2023-03-13] MEDS ORDERED: bisacodyl 5mg tablet.DR PO ONE (02:20)
[2023-03-13] MEDS ORDERED: normal saline 1000ML IV soln IVB ONE (02:20)
[2023-03-13] MEDS ORDERED: ondansetron 4mg rapidly disintigrating tab PO ONE (02:20)
[2023-03-13 02:47] LABS: BASOPHILS # (AUTO) 0.1 X10'3 (0-0.2); BASOPHILS % (AUTO) 0.6 % (0-1); EOSINOPHILS # (AUTO) 0.2 X10'3 (0-0.9); HEMOGLOBIN 12.8 g/dl (14.0-17.9); LYMPHOCYTES # (AUTO) 2.3 X10'3 (1.1-4.8); LYMPHOCYTES % (AUTO) 26.5 % (21-51); MEAN CORPUSCULAR HEMOGLOBIN 31.5 PG (27.0-31.0); MEAN CORPUSCULAR HGB CONC 34.6 g/dL (33.0-36.5); MEAN PLATELET VOLUME 9.4 FL (7.4-10.4); MONOCYTES % (AUTO) 11.2 % (2-12); NEUTROPHILS # (AUTO) 5.3 X10'3 (1.8-7.7); NEUTROPHILS % (AUTO) 59.7 % (42-75); PLATELET COUNT 228 X10'3 (140-440); RED BLOOD COUNT 4.06 X10'6 (4.70-6.10); RED CELL DISTRIBUTION WIDTH 12.8 % (11.5-14.5); WHITE BLOOD COUNT 8.9 X10'3 (4.5-11.0)
[2023-03-13 02:53] LABS: ALBUMIN 3.8 G/DL (3.4-5.0); ANION GAP 9 (8-16); BLOOD UREA NITROGEN 29 MG/DL (7-18); BUN/CREATININE RATIO 23.4 (10.0-20.0); CALCIUM 9.1 MG/DL (8.5-10.1); CHLORIDE 96 MMOL/L (99-107); CREATININE 1.24 MG/DL (0.60-1.10); GLUCOSE 106 MG/DL (70-104); LIPASE 67 U/L (16-77); POTASSIUM 4.2 MMOL/L (3.5-5.1); SODIUM 131 MMOL/L (135-145); TOTAL CARBON DIOXIDE 26.2 MMOL/L (24-32); eCRCL 65 ML/MIN; eGFR 72 ML/MIN
[2023-03-13] MEDS ORDERED: BISA-78 PO (03:00)
[2023-03-13 03:46] VITALS: BP 118/62; PULSE 96; RESP 18; TEMP 98.6; O2SAT 98
== END 2023-03-13 03:47 | disposition home or self-care (01) ==
LOC: ER 01:21
DX: K59.00 Constipation, unspecified (principal); I12.9 Hypertensive chronic kidney disease with stage 1 through stage 4 chronic kidney disease, or unspecified chronic kidney disease; N18.9 Chronic kidney disease, unspecified; K21.9 Gastro-esophageal reflux disease without esophagitis; J45.909 Unspecified asthma, uncomplicated; F41.9 Anxiety disorder, unspecified; F12.90 Cannabis use, unspecified, uncomplicated; Z88.6 Allergy status to analgesic agent; Z79.899 Other long term (current) drug therapy
CPT/HCPCS: 36415; 80048; 83690; 85025; 96360; 99283; J7030

== ENCOUNTER 2023-06-08 04:11 | Emergency (ER) | payer MEDICARE, MEDICAID ==
[~2023-06-08] VITALS: Ht 182.9 cm; Wt 74.0 kg
[~2023-06-08 04:11] MED LIST changes: +BISA-78 PO
[2023-06-08 04:43] LABS: BASOPHILS # (AUTO) 0.1 X10'3 (0-0.2); EOSINOPHILS % (AUTO) 0.1 % (0-6); HEMATOCRIT 42.3 % (42.0-52.0); HEMOGLOBIN 14.6 g/dl (14.0-17.9); LYMPHOCYTES # (AUTO) 2.4 X10'3 (1.1-4.8); LYMPHOCYTES % (AUTO) 31.4 % (21-51); MEAN CORPUSCULAR HEMOGLOBIN 31.1 PG (27.0-31.0); MEAN CORPUSCULAR HGB CONC 34.5 g/dL (33.0-36.5); MEAN CORPUSCULAR VOLUME 90.2 FL (78-98); MEAN PLATELET VOLUME 9.1 FL (7.4-10.4); MONOCYTES # (AUTO) 0.9 X10'3 (0-0.9); MONOCYTES % (AUTO) 11.9 % (2-12); NEUTROPHILS # (AUTO) 4.3 X10'3 (1.8-7.7); NEUTROPHILS % (AUTO) 55.6 % (42-75); PLATELET COUNT 263 X10'3 (140-440); RED BLOOD COUNT 4.69 X10'6 (4.70-6.10); RED CELL DISTRIBUTION WIDTH 13.9 % (11.5-14.5); WHITE BLOOD COUNT 7.7 X10'3 (4.5-11.0)
[2023-06-08] MEDS: normal saline 1000ML IV soln IVB ONE (04:47)
[2023-06-08] MEDS: ondansetron/PF 4mg/2ml inj IV ONE (04:47)
[2023-06-08 04:54] LABS: ALANINE AMINOTRANSFERASE 27 U/L (12-78); ALBUMIN 4.5 G/DL (3.4-5.0); ALBUMIN/GLOBULIN RATIO 0.8 (1.1-1.5); ALKALINE PHOSPHATASE 122 IU/L (46-116); ANION GAP 17 (8-16); ASPARTATE AMINO TRANSFERASE 22 U/L (10-37); BLOOD UREA NITROGEN 31 MG/DL (7-18); BUN/CREATININE RATIO 16.8 (10.0-20.0); CALCIUM 10.9 MG/DL (8.5-10.1); CHLORIDE 99 MMOL/L (99-107); CREATININE 1.85 MG/DL (0.60-1.10); GLUCOSE 163 MG/DL (70-104); POTASSIUM 3.9 MMOL/L (3.5-5.1); SODIUM 136 MMOL/L (135-145); TOTAL CARBON DIOXIDE 19.9 MMOL/L (24-32); TOTAL PROTEIN 9.8 G/DL (6.4-8.2); eCRCL 43 ML/MIN; eGFR 45 ML/MIN
[2023-06-08 04:56] LABS: ETHANOL < 10 MG/DL (<10); LIPASE 23 U/L (16-77)
[2023-06-08] MEDS: fentaNYL/PF 50MCG/1 ML 2ML syringe IV ONE (05:05)
[2023-06-08 06:44] LABS: BILIRUBIN,URINE NEGATIVE (Neg); CLARITY,URINE SLIGHTLY CLOUDY (Clear); COLOR,URINE YELLOW (Yellow); GLUCOSE, URINE NEGATIVE (Neg); KETONES,URINE 15 mg/dl (Neg); LEUKOCYTE ESTERASE ,URINE NEGATIVE (Neg); NITRITES, URINE NEGATIVE (Neg); OCCULT BLOOD,URINE SMALL (Neg); PROTEIN,URINE 30 mg/dl (Neg); UROBILINOGEN,URINE 0.2 E.U/dL (0.2-1.0)
[2023-06-08] MEDS ORDERED: BUDE10.22 PO (06:55)
[2023-06-08 06:59] LABS: UA COLLECTION TYPE CLN CATCH MIDSTREAM
[2023-06-08 07:01] LABS: URINE AMPHETAMINE SCREEN NEGATIVE (Neg); URINE BARBITUATE SCREEN NEGATIVE (Neg); URINE BENZODIAZEPINES SCREEN NEGATIVE (Neg); URINE CANNABINOID SCREEN POSITIVE (Neg); URINE COCAINE SCREEN NEGATIVE (Neg); URINE METHADONE SCREEN NEGATIVE (Neg); URINE OPIATE SCREEN NEGATIVE (Neg); URINE PHENCYCLIDINE SCREEN NEGATIVE (Neg)
[2023-06-08 07:15] LABS: HYALINE CASTS >30 /LPF (NEGATIVE)
[2023-06-08 07:17] LABS: BACTERIA,URINE 1+ /HPF (Neg); RBC,URINE 0-2 /HPF (0-2); SQUAMOUS EPITHELIAL CELL,UR FEW /LPF (FEW)
[2023-06-08 07:18] LABS: MUCUS STRANDS MANY /LPF (Neg)
[2023-06-08 07:19] LABS: CELLULAR CAST 0-4 /LPF (NEGATIVE)
[2023-06-08] MEDS ORDERED: FAMO20TA44 PO (07:19)
[2023-06-08] MEDS ORDERED: SIME180C70 PO (07:19)
[2023-06-08] MEDS: dicyclomine 10 MG capsule PO ONE (07:27)
[2023-06-08] MEDS: mag hydrox/Alum hydrox/simeth 30ml oral suspension PO ONE (07:27)
[2023-06-08] MEDS: famotidine 20mg tablet PO ONE (07:27)
[2023-06-08 07:32] VITALS: BP 189/100; PULSE 61; RESP 24; TEMP 97.5; O2SAT 100
[2023-06-08] MEDS: simethicone 125mg capsule PO ONE (07:41)
[2023-06-08] MEDS: LIDOcaine 2% Viscous 15ml cup MM ONE (07:44)
[2023-06-08] MEDS: cloNIDine 0.1 mg tablet PO ONE (07:44)
[2023-06-10] MEDS ORDERED: CARV6.253 PO (10:50)
[2023-06-10] MEDS ORDERED: AMLO5TAB4 PO (10:50)
[2023-06-10] MEDS ORDERED: tamsulosin capsule PO (10:50)
== END 2023-06-08 07:51 | disposition home or self-care (01) ==
LOC: ER 04:12
DX: K52.9 Noninfective gastroenteritis and colitis, unspecified (principal); J45.909 Unspecified asthma, uncomplicated; K21.9 Gastro-esophageal reflux disease without esophagitis; I12.9 Hypertensive chronic kidney disease with stage 1 through stage 4 chronic kidney disease, or unspecified chronic kidney disease; N18.9 Chronic kidney disease, unspecified; G89.29 Other chronic pain; M54.9 Dorsalgia, unspecified; F41.9 Anxiety disorder, unspecified; F12.90 Cannabis use, unspecified, uncomplicated; Z88.8 Allergy status to other drugs, medicaments and biological substances
CPT/HCPCS: 36415; 74176; 80053; 80305; 80320; 81001; 83690; 84145; 84484; 85025; 87088; 96361; 96374; 96375; 99285; J2405; J3010; J7030

== ENCOUNTER 2023-06-30 02:28 | Emergency (ER) | payer MEDICARE, MEDICAID ==
[~2023-06-30] VITALS: Ht 182.9 cm; Wt 69.0 kg
[~2023-06-30 02:28] MED LIST changes: +AMLO5TAB4 PO; +BUDE10.22 PO; +CARV6.253 PO; +FAMO20TA44 PO; -PHEN-716 PO; -PROC10TA97 PO; +SIME180C70 PO; +tamsulosin capsule PO
== END 2023-06-30 03:14 | disposition left against medical advice (07) ==
LOC: ER 02:29
DX: R10.9 Unspecified abdominal pain (principal); R11.0 Nausea; Z53.21 Procedure and treatment not carried out due to patient leaving prior to being seen by health care provider

== ENCOUNTER 2023-06-30 09:32 | Emergency (ER) | payer MEDICARE, MEDICAID ==
[~2023-06-30] VITALS: Ht 182.9 cm; Wt 68.4 kg
[2023-06-30 10:11] LABS: BASOPHILS % (AUTO) 0.3 % (0-1); EOSINOPHILS % (AUTO) 0 % (0-6); HEMATOCRIT 40.4 % (42.0-52.0); HEMOGLOBIN 13.8 g/dl (14.0-17.9); LYMPHOCYTES # (AUTO) 1.3 X10'3 (1.1-4.8); LYMPHOCYTES % (AUTO) 11.4 % (21-51); MEAN CORPUSCULAR HEMOGLOBIN 30.6 PG (27.0-31.0); MEAN CORPUSCULAR HGB CONC 34.3 g/dL (33.0-36.5); MEAN CORPUSCULAR VOLUME 89.4 FL (78-98); MEAN PLATELET VOLUME 8.4 FL (7.4-10.4); MONOCYTES # (AUTO) 0.8 X10'3 (0-0.9); MONOCYTES % (AUTO) 7.4 % (2-12); NEUTROPHILS # (AUTO) 9.2 X10'3 (1.8-7.7); NEUTROPHILS % (AUTO) 80.9 % (42-75); PLATELET COUNT 374 X10'3 (140-440); RED BLOOD COUNT 4.52 X10'6 (4.70-6.10); RED CELL DISTRIBUTION WIDTH 13.7 % (11.5-14.5); WHITE BLOOD COUNT 11.4 X10'3 (4.5-11.0)
[2023-06-30 10:59] LABS: ALANINE AMINOTRANSFERASE 18 U/L (12-78); ALBUMIN 4.6 G/DL (3.4-5.0); ALBUMIN/GLOBULIN RATIO 0.8 (1.1-1.5); ALKALINE PHOSPHATASE 134 IU/L (46-116); ANION GAP 14 (8-16); ASPARTATE AMINO TRANSFERASE 11 U/L (10-37); BILIRUBIN,TOTAL 0.6 MG/DL (0.1-1.0); BLOOD UREA NITROGEN 31 MG/DL (7-18); BUN/CREATININE RATIO 11.7 (10.0-20.0); CHLORIDE 94 MMOL/L (99-107); CREATININE 2.65 MG/DL (0.60-1.10); GLUCOSE 144 MG/DL (70-104); LIPASE 20 U/L (16-77); POTASSIUM 4.1 MMOL/L (3.5-5.1); SODIUM 131 MMOL/L (135-145); TOTAL CARBON DIOXIDE 22.6 MMOL/L (24-32); TOTAL PROTEIN 10.1 G/DL (6.4-8.2); eCRCL 28 ML/MIN; eGFR 30 ML/MIN
[2023-06-30 11:00] LABS: BILIRUBIN,URINE NEGATIVE (Neg); CLARITY,URINE SLIGHTLY CLOUDY (Clear); GLUCOSE, URINE NEGATIVE (Neg); KETONES,URINE TRACE mg/dl (Neg); LEUKOCYTE ESTERASE ,URINE NEGATIVE (Neg); NITRITES, URINE NEGATIVE (Neg); OCCULT BLOOD,URINE NEGATIVE (Neg); PH,URINE 5.5 (4.8-8.0); PROTEIN,URINE 100 mg/dl (Neg); UROBILINOGEN,URINE 0.2 E.U/dL (0.2-1.0)
[2023-06-30 11:03] LABS: COLOR,URINE DARK YELLOW (Yellow); UA COLLECTION TYPE CLN CATCH MIDSTREAM
[2023-06-30 11:07] LABS: WBC,URINE 0-4 /HPF (0-4)
[2023-06-30 11:08] LABS: BACTERIA,URINE FEW /HPF (Neg); RBC,URINE 0-2 /HPF (0-2)
[2023-06-30 11:10] LABS: CAL OXALATE CRYSTALS 2+ /HPF (NEGATIVE); MUCUS STRANDS MODERATE /LPF (Neg); SQUAMOUS EPITHELIAL CELL,UR FEW /LPF (FEW)
[2023-06-30 11:11] LABS: HYALINE CASTS >30 /LPF (NEGATIVE)
[2023-06-30] MEDS: normal saline 1000ML IV soln IVB ONE (12:02)
[2023-06-30] MEDS: acetaminophen 1,000mg/100ml IV 100 ML IV PRN (12:56)
[2023-06-30 12:59] LABS: FREE T4 (FREE THYROXINE) 0.99 NG/DL (0.73-1.40); THYROID STIMULATING HORMONE 0.93 ulU/ml (0.34-4.50)
[2023-06-30 13:30] VITALS: BP 173/117; PULSE 107; RESP 18; O2SAT 99
[2023-06-30 13:35] LABS: URINE AMPHETAMINE SCREEN NEGATIVE (Neg); URINE BARBITUATE SCREEN NEGATIVE (Neg); URINE BENZODIAZEPINES SCREEN NEGATIVE (Neg); URINE CANNABINOID SCREEN POSITIVE (Neg); URINE COCAINE SCREEN NEGATIVE (Neg); URINE METHADONE SCREEN NEGATIVE (Neg); URINE PHENCYCLIDINE SCREEN NEGATIVE (Neg)
[2023-06-30] MEDS ORDERED: HYDROcodone/acetaminophen 10/325mg tab PO ONE (13:50)
[2023-06-30 13:56] VITALS: TEMP 98.5
== END 2023-06-30 14:00 | disposition home or self-care (01) ==
LOC: ER 09:32
DX: R10.32 Left lower quadrant pain (principal); F11.23 Opioid dependence with withdrawal; K21.9 Gastro-esophageal reflux disease without esophagitis; I12.9 Hypertensive chronic kidney disease with stage 1 through stage 4 chronic kidney disease, or unspecified chronic kidney disease; N18.9 Chronic kidney disease, unspecified; N17.9 Acute kidney failure, unspecified; Z88.6 Allergy status to analgesic agent; Z88.5 Allergy status to narcotic agent; Z79.899 Other long term (current) drug therapy
CPT/HCPCS: 36415; 76770; 80053; 80305; 81001; 83690; 83970; 84439; 84443; 85025; 93005; 96361; 96374; 99285; J0131; J7030

== ENCOUNTER 2023-10-17 17:36 | Emergency (ER) | payer MEDICARE, MEDICAID ==
[~2023-10-17] VITALS: Ht 185.4 cm; Wt 74.1 kg
[~2023-10-17 17:36] MED LIST changes: -BISA-78 PO
[2023-10-17 18:51] LABS: BASOPHILS % (AUTO) 0.3 % (0-1); EOSINOPHILS % (AUTO) 0.1 % (0-6); HEMATOCRIT 47.2 % (42.0-52.0); HEMOGLOBIN 15.7 g/dl (14.0-17.9); LYMPHOCYTES # (AUTO) 1.9 X10'3 (1.1-4.8); MEAN CORPUSCULAR HEMOGLOBIN 30.7 PG (27.0-31.0); MEAN CORPUSCULAR HGB CONC 33.2 g/dL (33.0-36.5); MEAN CORPUSCULAR VOLUME 92.5 FL (78-98); MEAN PLATELET VOLUME 8.9 FL (7.4-10.4); MONOCYTES # (AUTO) 0.6 X10'3 (0-0.9); MONOCYTES % (AUTO) 6.4 % (2-12); NEUTROPHILS # (AUTO) 6.8 X10'3 (1.8-7.7); NEUTROPHILS % (AUTO) 73.2 % (42-75); PLATELET COUNT 318 X10'3 (140-440); RED CELL DISTRIBUTION WIDTH 13.6 % (11.5-14.5); WHITE BLOOD COUNT 9.3 X10'3 (4.5-11.0)
[2023-10-17 18:59] LABS: APTT 32 SECONDS (22-32); PROTHROMBIN TIME 10.3 SECONDS (9.0-12.0)
[2023-10-17 19:01] LABS: ALANINE AMINOTRANSFERASE 30 U/L (12-78); ALBUMIN 4.8 G/DL (3.4-5.0); ALBUMIN/GLOBULIN RATIO 0.9 (1.1-1.5); ALKALINE PHOSPHATASE 138 IU/L (46-116); ANION GAP 17 (8-16); ASPARTATE AMINO TRANSFERASE 25 U/L (10-37); BILIRUBIN,TOTAL 0.5 MG/DL (0.1-1.0); BLOOD UREA NITROGEN 27 MG/DL (7-18); BUN/CREATININE RATIO 13.5 (10.0-20.0); CALCIUM 11.4 MG/DL (8.5-10.1); CHLORIDE 101 MMOL/L (99-107); GLUCOSE 179 MG/DL (70-104); LIPASE 20 U/L (16-77); POTASSIUM 4.3 MMOL/L (3.5-5.1); SODIUM 137 MMOL/L (135-145); TOTAL PROTEIN 10.3 G/DL (6.4-8.2); eCRCL 40 ML/MIN; eGFR 41 ML/MIN
[2023-10-17 19:42] LABS: ETHANOL < 10 MG/DL (<10)
[2023-10-17] MEDS: normal saline 1000ml 1,000 ML IV ONE (19:49)
[2023-10-17] MEDS: ondansetron/PF 4mg/2ml inj IV ONE (19:50)
[2023-10-17] MEDS: acetaminophen 1,000mg/100ml IV 100 ML IV SCH (19:50)
[2023-10-17] MEDS: magnesium sulf-water 2g/50mL 50 ML IV ONE (20:08)
[2023-10-17 20:16] LABS: MAGNESIUM 2.6 MG/DL (1.5-2.4)
[2023-10-17] MEDS: HYDROmorphone 1 mg/ml syringe IV ONE (20:24)
[2023-10-17 20:27] VITALS: TEMP 98.9
[2023-10-17 20:39] LABS: CREATINE KINASE 92 U/L (39-308)
[2023-10-17 21:31] LABS: BILIRUBIN,URINE NEGATIVE (Neg); CLARITY,URINE SLIGHTLY CLOUDY (Clear); COLOR,URINE YELLOW (Yellow); GLUCOSE, URINE NEGATIVE (Neg); KETONES,URINE 15 mg/dl (Neg); LEUKOCYTE ESTERASE ,URINE NEGATIVE (Neg); NITRITES, URINE NEGATIVE (Neg); OCCULT BLOOD,URINE SMALL (Neg); PROTEIN,URINE 30 mg/dl (Neg); UROBILINOGEN,URINE 0.2 E.U/dL (0.2-1.0)
[2023-10-17 21:32] LABS: UA COLLECTION TYPE VOIDED
[2023-10-17 21:47] LABS: HYALINE CASTS >30 /LPF (NEGATIVE); MUCUS STRANDS MANY /LPF (Neg); RBC,URINE 0-2 /HPF (0-2); SQUAMOUS EPITHELIAL CELL,UR FEW /LPF (FEW); WBC,URINE 0-4 /HPF (0-4)
[2023-10-17 21:48] LABS: BACTERIA,URINE 1+ /HPF (Neg)
[2023-10-17 21:49] LABS: CAL OXALATE CRYSTALS 4+ /HPF (NEGATIVE)
[2023-10-17 21:52] LABS: URINE AMPHETAMINE SCREEN NEGATIVE (Neg); URINE BARBITUATE SCREEN NEGATIVE (Neg); URINE BENZODIAZEPINES SCREEN NEGATIVE (Neg); URINE CANNABINOID SCREEN POSITIVE (Neg); URINE COCAINE SCREEN NEGATIVE (Neg); URINE METHADONE SCREEN NEGATIVE (Neg); URINE OPIATE SCREEN POSITIVE (Neg); URINE PHENCYCLIDINE SCREEN NEGATIVE (Neg)
[2023-10-17 22:12] LABS: ALANINE AMINOTRANSFERASE 22 U/L (12-78); ALBUMIN 4.3 G/DL (3.4-5.0); ALBUMIN/GLOBULIN RATIO 0.9 (1.1-1.5); ALKALINE PHOSPHATASE 124 IU/L (46-116); ANION GAP 15 (8-16); ASPARTATE AMINO TRANSFERASE 32 U/L (10-37); BILIRUBIN,TOTAL 0.5 MG/DL (0.1-1.0); BLOOD UREA NITROGEN 29 MG/DL (7-18); BUN/CREATININE RATIO 16.9 (10.0-20.0); CALCIUM 10.6 MG/DL (8.5-10.1); CHLORIDE 103 MMOL/L (99-107); CREATININE 1.72 MG/DL (0.60-1.10); GLUCOSE 153 MG/DL (70-104); POTASSIUM 4.1 MMOL/L (3.5-5.1); SODIUM 138 MMOL/L (135-145); TOTAL CARBON DIOXIDE 19.9 MMOL/L (24-32); TOTAL PROTEIN 9.2 G/DL (6.4-8.2); eCRCL 47 ML/MIN; eGFR 49 ML/MIN
[2023-10-17] MEDS: haloperidol lactate 5mg/ml inj IM ONE (22:29)
[2023-10-17] MEDS ORDERED: METO10TA3 PO (22:53)
[2023-10-17 23:05] VITALS: BP 158/93; PULSE 61; RESP 17; O2SAT 98
== END 2023-10-17 23:26 | disposition home or self-care (01) ==
LOC: ER 17:36
DX: E86.0 Dehydration (principal); Z20.822 Contact with and (suspected) exposure to COVID-19; R11.15 Cyclical vomiting syndrome unrelated to migraine; J45.909 Unspecified asthma, uncomplicated; K21.9 Gastro-esophageal reflux disease without esophagitis; I12.9 Hypertensive chronic kidney disease with stage 1 through stage 4 chronic kidney disease, or unspecified chronic kidney disease; N18.9 Chronic kidney disease, unspecified; Z88.6 Allergy status to analgesic agent; Z88.5 Allergy status to narcotic agent; Z79.899 Other long term (current) drug therapy
CPT/HCPCS: 36415; 74176; 80053; 80305; 81001; 82550; 83690; 83735; 85025; 85610; 85730; 87811; 96372; 96374; 96375; 99285; G0480; J0131; J1170; J1630; J2405; J7030; 80320

== ENCOUNTER 2024-01-23 19:48 | Emergency (ER) | payer MEDICARE, MEDICAID ==
[~2024-01-23] VITALS: Ht 180.3 cm; Wt 67.8 kg
[~2024-01-23 19:48] MED LIST changes: +SIME180C61 PO; -SIME180C70 PO
[2024-01-23 20:51] LABS: BASOPHILS % (AUTO) 0.4 % (0-1); EOSINOPHILS % (AUTO) 0 % (0-6); HEMATOCRIT 41.8 % (42.0-52.0); HEMOGLOBIN 14.5 g/dl (14.0-17.9); LYMPHOCYTES # (AUTO) 1.2 X10'3 (1.1-4.8); LYMPHOCYTES % (AUTO) 12.9 % (21-51); MEAN CORPUSCULAR HEMOGLOBIN 31.5 PG (27.0-31.0); MEAN CORPUSCULAR HGB CONC 34.7 g/dL (33.0-36.5); MEAN PLATELET VOLUME 8.5 FL (7.4-10.4); MONOCYTES # (AUTO) 0.5 X10'3 (0-0.9); NEUTROPHILS # (AUTO) 7.3 X10'3 (1.8-7.7); NEUTROPHILS % (AUTO) 80.7 % (42-75); PLATELET COUNT 305 X10'3 (140-440); RED BLOOD COUNT 4.59 X10'6 (4.70-6.10); RED CELL DISTRIBUTION WIDTH 13.8 % (11.5-14.5)
[2024-01-23 21:07] LABS: ALANINE AMINOTRANSFERASE 25 U/L (12-78); ALBUMIN 4.4 G/DL (3.4-5.0); ALBUMIN/GLOBULIN RATIO 0.8 (1.1-1.5); ALKALINE PHOSPHATASE 146 IU/L (46-116); ANION GAP 16 (8-16); ASPARTATE AMINO TRANSFERASE 15 U/L (10-37); BILIRUBIN,TOTAL 0.7 MG/DL (0.1-1.0); BLOOD UREA NITROGEN 22 MG/DL (7-18); CALCIUM 11.4 MG/DL (8.5-10.1); CHLORIDE 98 MMOL/L (99-107); CREATININE 1.16 MG/DL (0.60-1.10); GLUCOSE 159 MG/DL (70-104); POTASSIUM 3.6 MMOL/L (3.5-5.1); SODIUM 135 MMOL/L (135-145); TOTAL CARBON DIOXIDE 20.8 MMOL/L (24-32); TOTAL PROTEIN 9.8 G/DL (6.4-8.2); eCRCL 63 ML/MIN; eGFR 77 ML/MIN
[2024-01-24] MEDS: normal saline 1000ml 1,000 ML IV ONE (00:55)
[2024-01-24] MEDS: ondansetron/PF 4mg/2ml inj IV ONE (01:04)
[2024-01-24] MEDS: acetaminophen 325mg tablet PO ONE ×2 (01:04)
[2024-01-24] MEDS: ondansetron 4mg rapidly disintigrating tab PO ONE (01:05)
[2024-01-24] MEDS: ketorolac trometh 30MG/ML vial 30 MG/ML VIAL IV ONE (01:15)
[2024-01-24 01:44] LABS: BILIRUBIN,URINE NEGATIVE (Neg); CLARITY,URINE CLEAR (Clear); COLOR,URINE YELLOW (Yellow); GLUCOSE, URINE NEGATIVE (Neg); KETONES,URINE 15 mg/dl (Neg); LEUKOCYTE ESTERASE ,URINE NEGATIVE (Neg); NITRITES, URINE NEGATIVE (Neg); OCCULT BLOOD,URINE SMALL (Neg); PROTEIN,URINE 100 mg/dl (Neg); UROBILINOGEN,URINE 0.2 E.U/dL (0.2-1.0)
[2024-01-24 01:48] LABS: UA COLLECTION TYPE URINAL
[2024-01-24 01:51] LABS: BACTERIA,URINE FEW /HPF (Neg); SQUAMOUS EPITHELIAL CELL,UR FEW /LPF (FEW)
[2024-01-24 01:52] LABS: WBC,URINE 0-4 /HPF (0-4)
[2024-01-24 02:07] VITALS: BP 128/68; PULSE 83; TEMP 98.1; O2SAT 96
[2024-01-24] MEDS: mag hydrox/Alum hydrox/simeth 30ml oral suspension PO ONE (02:10)
[2024-01-24 02:11] VITALS: RESP 16
== END 2024-01-24 02:14 | disposition home or self-care (01) ==
LOC: ER 19:48
DX: M54.50 Low back pain, unspecified (principal); J45.909 Unspecified asthma, uncomplicated; K21.9 Gastro-esophageal reflux disease without esophagitis; I12.9 Hypertensive chronic kidney disease with stage 1 through stage 4 chronic kidney disease, or unspecified chronic kidney disease; N18.9 Chronic kidney disease, unspecified; F41.9 Anxiety disorder, unspecified; Z88.5 Allergy status to narcotic agent; Z88.6 Allergy status to analgesic agent; Z98.890 Other specified postprocedural states
CPT/HCPCS: 36415; 80053; 81001; 85025; 96361; 96374; 99284; J1885; J7030; 99283

== ENCOUNTER 2024-05-25 19:33 | Emergency (ER) | payer MEDICARE, MEDICAID ==
[~2024-05-25] VITALS: Ht 182.9 cm; Wt 66.5 kg
[2024-05-25 19:42] VITALS: BP 175/112; PULSE 94; RESP 17; TEMP 98.2; O2SAT 97
[2024-05-25 20:58] LABS: BASOPHILS % (AUTO) 0.5 % (0-1); EOSINOPHILS % (AUTO) 0.1 % (0-6); LYMPHOCYTES # (AUTO) 1.1 X10'3 (1.1-4.8); MEAN CORPUSCULAR HEMOGLOBIN 30.9 PG (27.0-31.0); MEAN CORPUSCULAR HGB CONC 34.3 g/dL (33.0-36.5); MEAN CORPUSCULAR VOLUME 90.1 FL (78-98); MEAN PLATELET VOLUME 8.8 FL (7.4-10.4); MONOCYTES # (AUTO) 0.4 X10'3 (0-0.9); MONOCYTES % (AUTO) 4.3 % (2-12); NEUTROPHILS # (AUTO) 6.9 X10'3 (1.8-7.7); NEUTROPHILS % (AUTO) 82.1 % (42-75); PLATELET COUNT 281 X10'3 (140-440); RED BLOOD COUNT 4.55 X10'6 (4.70-6.10); WHITE BLOOD COUNT 8.4 X10'3 (4.5-11.0)
[2024-05-25 21:10] LABS: ALANINE AMINOTRANSFERASE 35 U/L (12-78); ALBUMIN 4.4 G/DL (3.4-5.0); ALKALINE PHOSPHATASE 124 IU/L (46-116); ANION GAP 14 (8-16); ASPARTATE AMINO TRANSFERASE 27 U/L (10-37); BILIRUBIN,TOTAL 0.8 MG/DL (0.1-1.0); BLOOD UREA NITROGEN 22 MG/DL (7-18); BUN/CREATININE RATIO 18.8 (10.0-20.0); CALCIUM 9.5 MG/DL (8.5-10.1); CHLORIDE 101 MMOL/L (99-107); CREATININE 1.17 MG/DL (0.60-1.10); GLUCOSE 154 MG/DL (70-104); LIPASE 13 U/L (16-77); POTASSIUM 3.7 MMOL/L (3.5-5.1); SODIUM 139 MMOL/L (135-145); TOTAL PROTEIN 8.9 G/DL (6.4-8.2); eCRCL 62 ML/MIN; eGFR 76 ML/MIN
== END 2024-05-25 23:12 | disposition left against medical advice (07) ==
LOC: ER 19:34
DX: M54.50 Low back pain, unspecified (principal); N23 Unspecified renal colic; I12.9 Hypertensive chronic kidney disease with stage 1 through stage 4 chronic kidney disease, or unspecified chronic kidney disease; N18.9 Chronic kidney disease, unspecified; F41.9 Anxiety disorder, unspecified; J45.909 Unspecified asthma, uncomplicated; K21.9 Gastro-esophageal reflux disease without esophagitis; Z88.5 Allergy status to narcotic agent; Z88.6 Allergy status to analgesic agent
CPT/HCPCS: 36415; 80053; 83690; 85025; 99283

== ENCOUNTER 2024-12-26 06:00 | Emergency (ER) | payer MEDICARE, MEDICAID ==
[~2024-12-26] VITALS: Ht 185.4 cm; Wt 63.1 kg
[~2024-12-26 06:00] MED LIST changes: +ACET-1008 PO; -SIME180C61 PO
[2024-12-26 06:09] VITALS: TEMP 97.5
--- NOTE | 2024-12-26 06:26 | Physician Documentation ---
History of Present Illness General Chief Complaint: Abdominal Pain Stated Complaint: KIDNEY PAIN Time Seen by MD: 06:14 History of Present Illness Initial Comments This is a pleasant 64-year-old gentleman who presents for evaluation of diffuse abdominal pain, decreased urination, and severe nausea for the last 2-1/2 days. He states that I have a this lesion on my kidney pointing to the left kidney, however not able to elaborate examined with the lesion is. He states that he had seen a pediatric neuropsychologist in [place]. He states that he occasionally gets those bout of abdominal pain with nausea and decreased urination. He states that during those bouts he suffers from insomnia. He states that he has not been able to sleep at all. He denies headache, reports slight chest tightness, denies shortness a breath. He also reports constipation for the same duration of time. He states that he has not no pain with a attempts to defecate, does report hemorrhoids, and can not tell me why he is not able to defecate but rather describes it as it is if somebody so that shut". He states that he never smoked, uses marijuana but quit a month ago, and does not drink. Medication Reconciliation Allergies: Coded Allergies: ibuprofen (Unverified Allergy, Unknown, 12/26/24) Scheduled Amlodipine Besylate (Norvasc), 1 TAB PO DAILY Carvedilol (Carvedilol), 6.25 MG PO BID Famotidine (Pepcid AC), 1 TAB PO DAILY [tamsulosin capsule], 0.4 MG PO HS Scheduled PRN Acetaminophen (Tylenol), 1 TAB PO QDAY PRN PRN for pain or fever, (Reported) Miscellaneous Medications Budesonide/Formoterol Fumarate (Symbicort 80-4.5 Mcg Inhaler), 2 PUFFS PO, (Reported) Past Medical History Past Medical History: Arrhythmia, Hypertension, Asthma, Gastritis, GERD, Chronic Kidney Disease, Chronic Back Pain, Anxiety Past Surgical History: orthopedic surgeries Other Past Family History: Diabetes, HTN Smoking: Non-Smoker Alcohol Use: None Drug Use: marijuana Lives with: Family Lives In: Home Review of Systems ROS 10 point review of systems was performed and unless noted above in HPI is negative for acute process/complaint. Physical Exam Physical Exam Vital Signs: Temperature: 97.5, Source: Temporal, Heart Rate: 101, Respiratory Rate: 12, BP: 150/107, Pulse Oximetry: 100, Weight: 63.100 Physical Exam GENERAL: Awake, alert, oriented, GCS 15, no apparent distress, non-toxic appearing, answers questions, follows commands appropriately. Examined in triage HEENT: Atraumatic, normocephalic, pupils equal, extraocular muscles intact, sclerae anicteric, mucus membranes moist, oropharynx is clear, no stridor. NECK: supple, full active range of motion, trachea midline, no thyromegaly, no lymphadenopathy, no JVD. CARDIOVASCULAR: Slightly tachycardic and regular rate/rhythm, no murmurs/gallops/rubs, Pulses are 2+ in all extremities and symmetric. Capillary refill less than 2 seconds. PULMONARY: Nonlabored, good air movement ,no respiratory distress, speaking in full sentences, clear to auscultation bilaterally, no wheezing, no ronchi, no rales, no accessory muscle use. GASTROINTESTINAL: Soft, non-tender, non-distended, normal active bowel sounds, no organomegaly, no pulsatile masses, no CVA tenderness. NEUROLOGIC: Lucid with normal mental status. Normal facial symmetry. Moves all extremities symmetrically and with purpose. No truncal ataxia. Speech is fluid without evidence of dysarthria or aphasia, no focal deficits appreciated. MUSCULOSKELETAL: There is full range of motion of all extremities. There is no joint pain or joint swelling or joint erythema. There is no muscle pain or tenderness or swelling. EXTREMITIES: warm, well-perfused, no cyanosis, no clubbing, no edema, no acute deformities. Skin: warm, dry, no rashes or lesions, no jaundice, no petechiae orpurpura. No ecchymosis. PSYCHIATRIC: Normal affect, normal insight, normal concentration. Focused exam: [] Progress Results/Orders Results/Orders Orders - PAMELLA TURNER DO Chest,Single View (12/26/24 06:14) Monitor (12/26/24 06:14) Saline Lock (12/26/24 06:14) Ct Abdomen Pelvis (12/26/24 06:14) Cult Urine + [place] Ct (12/26/24 10:29) Completed Orders - PAMELLA TURNER DO Electrocardiogram (12/26/24 06:14) Cbc/Diff (12/26/24 06:14) ESR (12/26/24 06:14) Lipase (12/26/24 06:14) C-Reactive Protein (12/26/24 06:14) PHOS (12/26/24 06:14) Chest,Single View (12/26/24 06:14) PBNP (12/26/24 06:14) MG (12/26/24 06:14) Normal Saline 1000ml (0.9% Sodium Chlori (12/26/24 06:15) Ct Abdomen Pelvis (12/26/24 06:14) CMP (12/26/24 06:14) Hs Troponin I W Calculations (12/26/24 06:14) Hs Troponin I W Calculations (12/26/24 08:14) Diatr Meglu/Diatrizoate 30ml (Gastrograf (12/26/24 06:15) Ondansetron Inj. (Zofran 4mg/2ml Vial) (12/26/24 06:15) Drug Screen, Urine (12/26/24 06:28) Hydrocodone/Apap 5/325mg Tab (Swiss 5/32 (12/26/24 07:35) Iohexol 300mg/Ml 100ml Inj. (Omnipaque-3 (12/26/24 08:12) Morphine 4mg/Ml Inj. (Morphine Inj.) (12/26/24 08:50) Morphine 2mg/Ml Inj. (Morphine Inj.) (12/26/24 08:55) Prochlorperazine Inj (Compazine Inj) (12/26/24 10:05) Ua W/Microscopic, Cult If Ind (12/26/24 09:47) Medications Received in ER Medications (Trade) Dose Ordered Sig/Lissette Route PRN Reason Start Time Stop Time Status Last Admin Dose Admin (0.9% sodium chloride (NS) 1000ml IV soln) 1,000 ml ONCE ONCE IVB 12/26/24 06:15 12/26/24 06:19 DC 12/26/24 07:20 1,000 ML (Gastrografin 66-10 oral solution) 10 ml Q45M PO 12/26/24 06:15 12/26/24 07:46 DC 12/26/24 10:01 10 ML (Zofran 4mg/2ml vial) 8 mg ONCE ONCE IV 12/26/24 06:15 12/26/24 06:19 DC 12/26/24 07:24 8 MG (Swiss 5/325mg tablet) 1 tab ONCE ONCE PO 12/26/24 07:35 12/26/24 07:36 DC 12/26/24 07:38 1 TAB (morphine inj.) 4 mg ONCE ONCE IV 12/26/24 08:55 12/26/24 08:56 DC 12/26/24 08:59 4 MG (Compazine inj) 10 mg ONCE ONCE IV 12/26/24 10:05 12/26/24 10:06 DC 12/26/24 10:08 10 MG Vital Signs 12/26/24 12/26/24 12/26/24 12/26/24 06:09 07:03 07:38 08:59 Temp 97.5 Pulse 101 87 Resp 12 15 15 10 B/P (MAP) 150/107 148/95 (112) Pulse Ox 100 99 12/26/24 12/26/24 12/26/24 09:01 09:11 11:09 Pulse 82 65 Resp 15 15 15 B/P (MAP) 156/94 (114) 166/97 (120) Pulse Ox 100 99 Laboratory Tests Test 12/26/24 06:36 12/26/24 08:18 12/26/24 09:47 White Blood Count 11.4 H Red Blood Count 4.31 L Hemoglobin 13.3 L Hematocrit 38.9 L Mean Corpuscular Volume 90.2 Mean Corpuscular Hemoglobin 30.8 Mean Corpuscular Hemoglobin Concent 34.1 Red Cell Distribution Width 13.3 Platelet Count 306 Mean Platelet Volume 8.8 Neutrophils (%) (Auto) 74.5 Lymphocytes (%) (Auto) 16.8 L Monocytes (%) (Auto) 8.1 Eosinophils (%) (Auto) 0.1 Basophils (%) (Auto) 0.5 Neutrophils # (Auto) 8.5 H Lymphocytes # (Auto) 1.9 Monocytes # (Auto) 0.9 Eosinophils # (Auto) 0.0 Basophils # (Auto) 0.1 CBC Comment Erythrocyte Sedimentation Rate 34 H Sodium Level 135 Potassium Level 3.3 L Chloride Level 95 L Carbon Dioxide Level 25.3 Anion Gap 15 Blood Urea Nitrogen 36 H Creatinine 1.81 H Estimated GFR/1.73 m2 46 BUN/Creatinine Ratio 19.9 Glucose Level 129 H Calcium Level 9.0 Phosphorus Level 4.9 H Magnesium Level 3.6 H Total Bilirubin 0.5 Aspartate Amino Transf (AST/SGOT) 69 H Alanine Aminotransferase (ALT/SGPT) 32 Alkaline Phosphatase 116 Troponin I High Sensitivity 21 20 C-Reactive Protein 0.91 H Pro-B-Type Natriuretic Peptide 494 H Total Protein 9.2 H Albumin 4.4 Globulin 4.8 H Albumin/Globulin Ratio 0.9 L Lipase 25 Chemistry Comments Troponin I High Sens Percent Delta 4 Troponin I Hi Sens Absolute Change -1 Urine Specimen Description Non-specified Urine Color Yellow Urine Clarity Slightly cloudy Urine pH 6.0 Urine Specific Hudgins >=1.030 Urine Protein 100 H Urine Glucose (UA) Negative Urine Ketones 15 H Urine Occult Blood Large H Urine Nitrite Negative Urine Bilirubin Negative Urine Urobilinogen 0.2 Urine Leukocyte Esterase Negative Urine RBC 3-10 Urine WBC 5-10 H Urine Squamous Epithelial Cells Few Urine Bacteria Few Urine Cellular Casts 0-4 Urine Hyaline Casts >30 Urine Culture Indicated Indicated Volume Urine Centrifuged 10 ml Urine Comment Urine Opiates Screen Positive Urine Methadone Screen Negative Urine Fentanyl Screen Negative Urine Barbiturates Screen Negative Urine Phencyclidine Screen Negative Urine Amphetamines Screen Negative Urine Benzodiazepines Screen Negative Urine Cocaine Screen Negative Urine Cannabinoids Screen Positive Drug Screen Comment EKG/XRAY/CT/US/VASC/MRI EKG : Additional Comment EKG was obtained and interpreted by myself shows sinus tachycardic, rate of 102, normal TN interval, narrow QRS, no QT prolongation, normal axis, no STEMI. T- wave inversion in inferolateral leads noted. Medical Decision Making Additional information obtaine: old records Findings Facility Status: ED Holds, [facility] process The plan was discussed with the patient, who demonstrates clear understanding of the plan and is in agreement with the plan unless otherwise noted in the chart. All questions have been answered, all concerns were addressed unless otherwise documented. I was available throughout their ED stay for frequent reassessment and questions. Differential Diagnoses (considered and possible or likely): [With a respect to her abdominal pain, Differential diagnosis considered includes acute appendicitis, acute cholecystitis, pancreatitis, gastritis, PUD, diverticulitis, mesenteric ischemia, abdominal aortic aneurysm, bowel obstruction, enteritis, colitis, constipation/fecal impaction, volvulus, IBS, inflammatory bowel disease, specific food intolerance, peritonitis, perforated viscous, malignancy, UTI, abscess, and abdominal pain NOS. History, physical exam, and workup exclude many of the more serious causes listed above. With a respect to chest pain, Differential diagnosis considered includes chest wall pain, pleurisy, pneumonia, pulmonary embolus, GERD, esophagitis, gastritis, anxiety, stress reaction, costochondritis, acute coronary syndrome, aortic dissection, pericarditis, myocarditis, or pneumothorax.] ??Differential Diagnoses (considered and unlikely, not requiring evaluation currently): [Aortic/great vessels dissection was considered but it is unlikely based on absence of ripping, tearing, migratory chest pain, absence of syncope or focal neurologic deficits, physical examination indicating equal and symmetric pulses.] MDM Data Please see [facility] for the following: Independent Historians and external Records Review. Historian: [Patient] Independent Historians: ?[Record review] Medication Management: [Reviewed medication list] Social History and determinants: [Reviewed] Please see the body of the note for the following: Any independent interpretations of ECG, imaging studies. All vitals signs/haemodynamics, ordered tests were independently reviewed and interpreted by myself. Nursing triage complaint and vitals reviewed, additional nursing notes were reviewed as available and I agree unless otherwise noted or documented in contradiction in the chart Vital Signs: Independently reviewed Labs: Independently interpreted Imaging: Independently interpreted Old Medical Records: Independently reviewed, see [facility] for relevant summary and information Pulse Oximetry: [97%] interpreted as [normal on room air] by me [Machine Stemmer: [Regular Rate, Regular rhythm, no ectopy, NSR] reviewed and interpreted by me] Additionally notably showing: [Hemodynamics reviewed. The patient isn't febrile, not tachycardic, no evidence of hypotension or respiratory distress. CBC normal ESR slightly elevated. Metabolic panel notable for recurrence of TYLER. Not the worse creatinine this patient had. Initial troponin and repeat troponin is negative. BNP is elevated but does not reach criteria for CHF exacerbation. CRP is elevated somewhat. Lipase is normal. UA shows significant hematuria ketones, protein, urine is concentrated. Few bacteria noted and white blood cells are present. Could this potentially represent UTI. Toxicology positive for opioids and cannabinoids. CT of the abdomen and pelvis shows persistent 3.3 cm lobulated mass, already known to the patient.: As dilated with a fluid. This could represent ileus versus enteritis. No obstruction however.] Tests considered but not ordered include: [Patient already had outpatient MRI, he is being followed by a specialist for his renal mass] Social Determinants of Health Impact: Patient was evaluated in [facility] [place] to healthcare due to below par ratio of patient to medical providers. [] Comorbid Conditions Impacting Present Evaluation and Care/Treatment: [Multiple, see list] Management Discussions with other Healthcare Providers: [None] Treatment and Disposition Medication Management (Given or considered): [Fluids]. See EMR for details Consideration for Hospitalization/Escalation/Deescalation of Care: Admission for observation has been considered, [however the patient is able to tolerate p.o., their symptoms are controlled, they are able to rely on oral medications, and their chief complaint/diagnosis can be managed on outpatient basis.] ?ED Course:?[No clinical deterioration] ?Shared decision making:?[Patient is hemodynamically stable for discharge home with follow with their primary care provider. [ ] Specific and cautious return precautions provided and discussed with full understanding. Any incidental findings were also discussed and follow up recommendations given. [] All questions answered. Patient/family were able to verbalize back return precaution s. Patient/family agree to plan. Copies of imaging and laboratory studies were provided.] Code status:?FULL Please see the full Electronic Medical Record for full details of nursing documentation, medications list, other records of complete past medical history and conditions, vital signs, laboratory studies, and any radiologic study interpretations by radiologists. Portions of this note were completed using [employer] dictation software and as a result there may exist minor errors in spelling. I have reviewed elements of past family and social history and agree as included in note. Differential Diagnosis See the body of main note for differential diagnosis Departure Disposition: 01 HOME / SELF CARE / HOMELESS Impression: Primary Impression: Insomnia Additional Impressions: Acute kidney injury Abdominal pain Enteritis Kidney mass Adrenal nodule Nausea and vomiting Urinary tract infection Condition: Improved Discharge Instructions: Abdominal Pain (Nonspecific), Urinary Tract Infection, Adult Additional Instructions: There is no clear explanation for your abdominal pain and nausea today. Your CT showed that there is no evidence of obstruction, your small and large bowel is filled with the liquid stool and you are likely to experience copious amounts of diarrhea soon. There is no explanation for your insomnia either. Please follow-up with your primary care provider. There was an incidental finding of urinary tract infection for which you were provided with the antibiotics. Referrals: NO PRIMARY CARE PROVIDER (PCP) Prescriptions Dicyclomine Hcl* (Bentyl*) 10 Mg Capsule 2 CAP PO Q8H PRN for ABDOMINAL PAIN for 7 Days, #42 CAP Prov: PAMELLA TURNER DO 12/26/24 ONDANSETRON ODT 4mg tablet (ONDANSETRON ODT) 4 Mg Tab.rapdis 1 TAB PO Q6H PRN PRN for nausea/vomiting for 4 Days, #16 TAB 0 Refills Prov: PAMELLA TURNER DO 12/26/24 Amox Tr/Potassium Clavulanate (Augmentin 875-125 Tablet) 1 Each Tablet 1 TAB PO Q12H for 10 Days, #20 TAB Prov: PAMELLA TURNER DO 12/26/24 Education Educated: Patient Educated regarding: diagnosis, treatment, prognosis, need for follow up Signature Scribe Signature: No scribe Attestation: Date: Dec 26, 2024 Time: 06:26 This note accurately reflects clinical decisions, work performed by myself, DO YUE Galeas NICHOLAS M DO Dec 26, 2024 06:26
--- NOTE | 2024-12-26 06:44 | RADIOLOGY REPORT ---
CHEST RADIOGRAPH Indication: chest tightness Technique: Single frontal view of the chest was obtained Comparison: CHEST,SINGLE VIEW on DOS: 11/02/21. FINDINGS: Lines and Tubes: None Lungs: No focal consolidation. Pleura: No effusion. No pneumothorax. Cardiomediastinal contours: Unremarkable Bones: No acute osseous abnormality. ACDF noted. IMPRESSION: 1. No acute cardiopulmonary disease.
--- NOTE | 2024-12-26 06:45 | ELECTROCARDIOGRAPH REPORT ---
[facility] Test Date: 2024-12-26 Test Time: 06:43:17 Pat Name: ANGEL MONTGOMERY Department: PSYCHIATRIC-ER Room: Gender: M [employer] Developer: : 1960 Requested By: PAMELLA TURNER Order Number: [id number] Reading MD: Dr. YAN Parker Measurements Intervals [place] Rate: 102 P: 81 AR: 127 QRS: 92 QRSD: 86 T: -55 QT: 310 QTc: 404 Interpretive Statements Sinus tachycardia Right atrial enlargement Electronically Signed On 12-26-2024 16:53:[address] YAN Parker Please click the below link to view image of tracing.
[2024-12-26 06:50] LABS: MEAN PLATELET VOLUME 8.8 FL (7.4-10.4); RED CELL DISTRIBUTION WIDTH 13.3 % (11.5-14.5)
[2024-12-26 07:10] LABS: CREATININE 1.81 MG/DL (0.60-1.10); TOTAL CARBON DIOXIDE 25.3 MMOL/L (24-32); eCRCL 37 ML/MIN; eGFR 46 ML/MIN
[2024-12-26 07:18] LABS: PHOSPHORUS 4.9 MG/DL (2.3-4.5); PRO BRAIN NATRIURETIC PEPTIDE 494 PG/ML (0-125)
[2024-12-26] MEDS: normal saline 1000ML IV soln IVB ONE (07:20)
[2024-12-26] MEDS: ondansetron/PF 4mg/2ml inj IV ONE (07:24)
[2024-12-26] MEDS: HYDROcodone/acetaminophen 5mg/325mg tablet PO ONE (07:38)
[2024-12-26] MEDS: diatr meglu/diatrizoate 30ml oral sol.-(3 dose) bottle PO SCH (07:58)
[2024-12-26] MEDS ORDERED: iohexol 300mg/ml 100ml inj. ONE (08:12)
[2024-12-26] MEDS: morphine 4 MG/ML inj SYRINge IV ONE (09:41)
[2024-12-26 10:15] LABS: LEUKOCYTE ESTERASE ,URINE NEGATIVE (Neg); NITRITES, URINE NEGATIVE (Neg); OCCULT BLOOD,URINE LARGE (Neg)
[2024-12-26 10:26] LABS: UA COLLECTION TYPE NON-SPECIFIED
[2024-12-26 10:28] LABS: CELLULAR CAST 0-4 /LPF (NEGATIVE); HYALINE CASTS >30 /LPF (NEGATIVE); SQUAMOUS EPITHELIAL CELL,UR FEW /LPF (FEW)
[2024-12-26 10:41] LABS: URINE AMPHETAMINE SCREEN NEGATIVE (Neg); URINE BARBITUATE SCREEN NEGATIVE (Neg); URINE BENZODIAZEPINES SCREEN NEGATIVE (Neg); URINE CANNABINOID SCREEN POSITIVE (Neg); URINE COCAINE SCREEN NEGATIVE (Neg); URINE METHADONE SCREEN NEGATIVE (Neg); URINE OPIATE SCREEN POSITIVE (Neg); URINE PHENCYCLIDINE SCREEN NEGATIVE (Neg)
--- NOTE | 2024-12-26 11:01 | RADIOLOGY REPORT ---
CLINICAL INFORMATION: Diffuse abdominal pain. TECHNIQUE: Axial CT images of the abdomen and pelvis were obtained after the uneventful administration of 100 mL Omnipaque 300 IV contrast. Coronal and sagittal reformatted images were obtained, reviewed, and stored. All CT scans at this medical facility are performed using dose modulation techniques as appropriate to a performed exam including the following: Automated exposure control was utilized; adjustment of the MA and/or KV according to patient size; and use of iterative reconstruction technique. CTDIvol = 8.98 mGy DLP = 415.36 mGy-cm COMPARISON: MR MRI ABDOMEN on DOS: 10/19/24, CT CT ABDOMEN PELVIS on DOS: 10/16/24, CT CT ABDOMEN PELVIS on DOS: 10/17/23 FINDINGS: Lung bases: Mild dependent atelectasis in the left lower lobe. Liver: Unremarkable. No abnormal density or focal lesion. Biliary: No calcified gallstones or biliary ductal dilatation. Spleen: Unremarkable. Pancreas: Unremarkable. No inflammatory changes, ductal dilatation, or mass identified. Adrenal glands: Stable left adrenal nodule measuring up to 2 cm in greatest dimension. Kidneys: No hydronephrosis. There are low-attenuation lesions in both kidneys, with the largest at the upper pole of the left kidney demonstrating Lobulated contour and multiple septations, with some mild enhancement involving some of the septations, measuring up to 3.3 cm in greatest dimension. Portions of this lesion demonstrate higher than simple fluid attenuation. A 1.6 cm low-density lesion in the inferior pole of the left kidney also measures higher than simple fluid attenuation, although may be partly due to beam hardening artifact from the patient's surgical hardware in the lumbar spine. Smaller lesions in both kidneys are too small to characterize. Aorta/Vascular: Scattered atherosclerotic calcification. No abdominal aortic aneurysm. Lymph Nodes: No mass or lymphadenopathy. Bowel/mesentery: Nonspecific nondilated fluid-filled small bowel loops. Appendix is visualized and appears unremarkable. There is liquid stool throughout the colon. Pelvic organs: Enlarged prostate with impression on the bladder base. Bladder: Mild circumferential thickening of the bladder wall. Abdominal wall: No mass or hernia. Bones: No acute fracture or focal intraosseous lesion. Postsurgical changes from posterior spinal fusion at L3-L5 and interbody fusion at L4-L5. Surgical hardware appears intact. Beam hardening artifact from the surgical hardware limits evaluation of adjacent structures. IMPRESSION: 1. Nonspecific nondilated fluid-filled small bowel loops with liquid stool in the colon. Findings may be seen with ileus or enteritis in the appropriate clinical setting. No small bowel obstruction. 2. No significant interval change in size in a lobulated low-density lesion in the upper pole of the left kidney as described above. There appear to be enhancing septations consistent with a Bosniak 2F lesion. Continued imaging surveillance recommended. Additional smaller bilateral low-density lesions in the kidneys as described above. 3. Stable left adrenal nodule measuring up to 2 cm, most likely benign etiology, although not demonstrated to be a lipid rich adenoma on previous noncontrast enhanced CT imaging. Attention on follow-up imaging recommended to demonstrate ongoing stability. 4. Circumferential thickening of the bladder wall is nonspecific. Possibly due to a degree of bladder outlet obstruction from the enlarged prostate. Correlate clinically to exclude cystitis. 5. Additional findings as described above.
[2024-12-26] MEDS ORDERED: AMOX-117 PO (11:34)
[2024-12-26] MEDS ORDERED: DICY10CA88 PO (11:34)
[2024-12-26] MEDS ORDERED: ONDA-243 PO (11:34)
[2024-12-26 11:46] VITALS: BP 162/99; PULSE 82; RESP 15; O2SAT 100
== END 2024-12-26 11:50 | disposition home or self-care (01) ==
LOC: ER 06:00
DX: K52.9 Noninfective gastroenteritis and colitis, unspecified (principal); N39.0 Urinary tract infection, site not specified; N28.89 Other specified disorders of kidney and ureter; N17.9 Acute kidney failure, unspecified; I12.9 Hypertensive chronic kidney disease with stage 1 through stage 4 chronic kidney disease, or unspecified chronic kidney disease; N18.9 Chronic kidney disease, unspecified; J45.909 Unspecified asthma, uncomplicated; G89.29 Other chronic pain; G47.00 Insomnia, unspecified; F12.90 Cannabis use, unspecified, uncomplicated; F41.9 Anxiety disorder, unspecified; K21.9 Gastro-esophageal reflux disease without esophagitis; Z98.890 Other specified postprocedural states; Z87.19 Personal history of other diseases of the digestive system; Z88.6 Allergy status to analgesic agent; Z79.899 Other long term (current) drug therapy
CPT/HCPCS: 36415; 71045; 74177; 80053; 80305; 81001; 83690; 83735; 83880; 84100; 84484; 85025; 85651; 86140; 87088; 93005; 96361; 96374; 96375; 99285; J0780; J2270; J2405; J7030; Q9963; Q9967